=== PATIENT | male | born 1950 | race Caucasian/White ===

== ENCOUNTER 2016-10-05 09:05 | Inpatient (IN) | payer OTHER ==
--- NOTE | 2016-10-04 14:59 | PCM.ANEPRE ---
Anesthesia Pre-Op Review Reason for Review: CARDIAC ISSUES/STOP BANG 12/08 Anesthesia Recommendations: Proceed with Procedure Additional Comments 66 y/o male scheduled for Left foot surgery. Pt with h/o COPD/Emphysema, echo with EF 60-65%, Hgb A1c 8.5 and STOP BNAG 12/08. Ok to proceed. Will eval DOS. Chart Reviewed by: Luigi Dave MD October 04, 2016 14:59
[~2016-10-05] VITALS: Ht 188 cm; Wt 140.7 kg
[2016-10-05] VITALS (13 sets, daily range): BP systolic 130–174; BP diastolic 54–90; PULSE 54–79; RESP 11–18; O2SAT 89–97
[2016-10-05] MEDS: Lactated Ringer's 1,000 ML IV SCH ×3 (05:00→12:08)
[~2016-10-05 09:05] MED LIST: ALBU18HF INH; ALBU2.5V4 NEB; ALLO300T2 PO; AMLO5TAB2 PO; ASPI-973 PO; ATOR10TA66 PO; BUPR300T52 PO; CITA20TA11 PO; COLC0.6T55 PO; CeFAZolin Inj 3 GM in IV Premix IV ONE; FOLI100T PO; FURO40TA4 PO; HYDR-3940 PO; INSU100I SUBQ; INSU100I13 SUBQ; METO50TA3 PO; MORP10CA12 PO; OXYC-474 PO; POTA10TA12 PO; RANI150C4 PO; SILD100T PO; TIOT4MIS2 IH
[2016-10-05] MEDS ORDERED: fentaNYL-PF 50 mCg/mL 2 mL Inj IVPUSH PRN (10:20)
[2016-10-05 10:22] LABS: Mean Corpuscular Hemoglobin 25.4 pg (27.0-35.0); Mean Corpuscular Volume 83.5 fL (81-100)
[2016-10-05] MEDS ORDERED: Bupivacaine-MPF 0.5% W/EPI 30 mL Inj INFILTRATE ONE (11:40)
[2016-10-05] MEDS ORDERED: Lidocaine 2%-Epi 1:100,000 20 mL Inj INFILTRATE ONE (11:40)
[2016-10-05] MEDS ORDERED: Lactated Ringer's 500 ML IV PRN (11:59)
[2016-10-05] MEDS ORDERED: Lactated Ringer's 1,000 ML IV SCH (11:59)
--- NOTE | 2016-10-05 11:59 | PCM.HPANE ---
Patient Data Date of Service: October 05, 2016 Surgeon Admitting Provider: Attending Provider:Ayush Chopra DPM Primary Care Physician:Colleen Doyle MD Other Provider:Steph Diaz Anesthesia Reason for Visit Left Sharko Foot, Achilles Contracture Ht/WT & BMI Height (Feet): 6 Height (Inches): 2.00 Weight (Kilograms): 140.700 Body Mass Index 39.00 Allergies Coded Allergies: TAPE (Verified Adverse Reaction, Severe, RASH, ITCHING, 10/04/16) vancomycin (Verified Adverse Reaction, Severe, Toxicity requiring dialysis , 10/04/16) Past Anesthesia History Anesthesia History: Denies:: Abnormal Airway, Anesthesia Reactions, Difficult Intubation, Fam Anesthesia Reaction, Fam Malignant Hypertherm, Malignant Hyperthermia Diabetes History Hx Diabetes?: Yes Type of Diabetes: Type II Glycemic Control: Insulin Dependent Current Bedside Blood Glucose: 172 MRSA MRSA: Yes (Foot MRSA) Medications Blood Thinner: Aspirin Hypertension Medication: Yes (AMLODIPINE,HYDRALAZINE,LASIX) Home Meds Incl Beta Hussain: Yes Date Beta Hussain Taken: October 05, 2016 Time Beta Hussain Taken: 07 Active Scripts Hydralazine 50 Mg Jmsfsy564 Mg PO TID #60 TABLET Prov:Demetrio Tesfaye MD 12/29/15 Atorvastatin Calcium 10 Mg Jkqxav34 Mg PO HS #30 TABLET Prov:Demetrio Tesfaye MD 12/29/15 Amlodipine 5 Mg Tclghz97 Mg PO DAILY #30 TABLET Prov:Demetrio Tesfaye MD 12/29/15 Reported Medications Morphine Sulfate ER 10 Mg Llenosc32 Mg PO BID 10/04/16 Potassium Chloride ER 10 Meq Oofxfv32 Meq PO DAILY Ref 0 TAKE WITH FOOD 10/04/16 Tiotropium Bumpass (Spiriva Respimat)4 Gm Mist.inhal4 Gm IH HS 10/04/16 Folic Acid/Multivit-Minerals (Centrum Flavor Burst Adult Chw)100 Mcg Tab.toyk984 Mcg PO DAILY 10/04/16 Ranitidine 150 Mg Sglzwoy310 Mg PO DAILY Ref 0 10/04/16 Furosemide 40 Mg Qmobvh96 Mg PO DAILY 10/04/16 Insulin Glargine (Lantus U100 Solostar Insulin Pen)100 Unit/1 Ml Insuln.pen20 Unit SUBQ BID #1 PENINJ Ref 0 10/04/16 Albuterol Sulfate (Ventolin HFA Inhaler)200 Puff/18 Gm Inhaler1 Puff INH Q4 PRN For Wheezing #1 INHALER Ref 0 10/04/16 Metoprolol Tartrate 50 Mg Hshhxy56 Mg PO BID 30 Days Ref 0 10/04/16 Oxycodone (Roxicodone)5 Mg Ayeqwp65 Mg PO 6x day PRN For Pain Ref 0 11/25/15 Insulin Aspart (NovoLOG U-100 Pen)100 Unit/Ml Insuln.pen25 Units SUBQ 6X/DAY 10/13/15 Colchicine 0.6 Mg Tablet0.6 Mg PO PRN Gout 10/13/15 Citalopram 20 Mg Cunyjt02 Mg PO DAILY 10/13/15 Bupropion ER 300 Mg Tab.er.82f713 Mg PO DAILY 10/13/15 Aspirin 81 Mg Zbtlkt87 Mg PO DAILY Ref 0 10/13/15 Allopurinol 300 Mg Vdaqyy577 Mg PO DAILY PRN gout Ref 0 10/13/15 Albuterol Neb Soln 2.5 Mg/3 Ml Vial.neb3 Mg NEB Q4H 10/13/15 Discontinued Reported Medications Sildenafil Citrate (Viagra)100 Mg Ctyawu242 Mg PO UD PRN ED Ref 0 10/04/16 Multivitamin-Min/Iron/FA/Vit K (Multi-Day Plus Minerals Tablet)18 Mg Iron-400 Mcg-25 Mcg Tablet1 Tablet PO DAILY 01/02/16 Ergocalciferol (Vitamin D2) (Drisdol)50,000 Unit Onrgoqn07,000 Unit PO Q Saturday10/13/15 Discontinued Scripts Insulin Human Lispro (HumaLOG U100 Insulin Vial)100 Unit/Ml Unit Subq Wmhs #1 Unit Check blood sugars before meals and at bedtime. Use correction factor only before meals. Blood Sugar Lispro Correction: <151, 0 units; 151-175, 1 unit; 176-200, 2 units; 201-225, 3 units; 226-250, 4 units; 251-275, 5 units; 276-300, 6 units; 301-325, 7 units; 326-350, 8 units; 351-375, 9 units; 376-400, 10 units; >400, 12 units. Prov:Demetrio Tesfaye MD 12/29/15 Insulin Glargine (Lantus U100 Insulin Vial)100 Unit/Ml Vial30 Unit SUBQ BID #1 VIAL Prov:Demetrio Tesfaye MD 12/29/15 Labetalol 100 Mg Pgzwhf55 Mg PO Q8 #60 TABLET Prov:Demetrio Tesfaye MD 12/29/15 Iron Polysaccharides Complex (Poly-Iron)150 Mg Zzfpaog026 Mg PO BID #30 CAPSULE Prov:Demetrio Tesfaye MD 12/29/15 Folic Acid 1 Mg Tablet1 Mg PO DAILY #30 TABLET Prov:Demetrio Tesfaye MD 12/29/15 Famotidine (Pepcid)20 Mg Zrbrtf92 Mg PO DAILYAC #30 TABLET Prov:Demetrio Tesfaye MD 12/29/15 Sevelamer Carbonate (Renvela)800 Mg Tablet1,600 Mg PO TIDWM 30 Days Prov:Demetrio Tesfaye MD 12/29/15 History History of ENT Problems?: Yes HEENT History: Positive for:: Cataracts (B/L) Denies:: Abnormal Airway Difficult Intubation Dysphagia Hearing Problem Sinus Problem TMJ Denture Type: None Teeth Condition: Missing Teeth Hx of Heart Problems?: Yes Cardiovascular History: Positive for:: Abdominal Aortic Aneurism (AORTIC ARCH MILDLY ENLARGED) Cardiac Surgery (S/P HEART CATH 10/2015) Congestive Heart Failure Coronary Artery Disease ("MILD") Hypertension (HYPERLIPIDEMIA) Denies:: Atrial Fibrillation Chest Pain Edema Heart Murmur (ECHO 12/2015 EF 65-70%) Irregular Heartbeat Pacemaker Thrombophlebitis Valvular Heart Disease Hx of Respiratory Problem?: Yes Respiratory History: Positive for:: Asthma COPD Chest Surgery Pneumonia (HX OF) Denies:: Cough (RECENT COLD-CXR SHOWS NO ACUTE DISEASE) Dyspnea Emphysema Hemoptysis Tuberculosis Use of C-PAP Machine (sleep study recommended - not yet done) Hx Neurologic Problems?: Yes Neurological History: Positive for:: Dizziness Headaches Denies:: Alzheimer's Disease CVA Dementia Multiple Sclerosis Parkinson's Disease Seizures Other Neurological Pertinent: C/OF PERIPHERAL NEUROPATHY, INSOMNIA CHRONIC PAIN SYNDROME-FOLLOWED BY DR. JILLIAN DEY DO Hx of GI Problems?: Yes Hx of Problems?: Yes Genitourinary History: Denies:: HX of Hemodialysis (HX OF DIALYSIS FOR ARF R/ T VANCO TOXICITY 01/2016 (CURRENTLY CRI STAGE II)) Kidney Stones Urinary Tract Infection HX of Peritoneal Dialysis: No Other Pertinent History: ED Male Hx: Denies:: Prostate Problems Scrotal Mass Testicular Surgery Skin History: Positive for:: Pressure Ulcers (B/L FEET) Denies:: History Skin Disorders? Hx Musculoskeletal Problems?: Yes Musculoskeletal History: Positive for:: Back Injury (chronic pain) Musculoskeletal Trauma (Multiple falls W/ RT THUMB FX) Osteoarthritis Denies:: Joint Replacement Systemic Lupus Hx of Psycho/Social Problems?: Yes Psycho Social History: Positive for:: Anxiety (PTSD) Bipolar Disorder (II) Hx Depression Denies:: Suicide Attempt Hx Surgeries?: Yes (MULT TOE AMPS/RPRS,LT SHOULDER RPR,HEART CATH,B/L KNEE RPRS ) Hx Any Other Health Problems?: Yes Other History: Positive for:: Hospitalization Denies:: Cancer Endocrine Disease Thyroid Disease History Blood Transfusions: Denies:: Blood Transfusions Hx Diabetes: YesBedside Blood Glucose: 172 Hx Alcohol Use: No (HX ABUSE)Hx Substance Use: Yes Smoking Status: Current Every Day Smoker Have You Smoked inLast 12 mo: No Stop/Bang Treated for Sleep Apnea?: No Do You Have a CPAP Machine?: No S-Snoring: Do You Snore Loudly: Yes T-Tired: feel tired, fatigued: No O-Obsered: Observed not breath: Yes P-Blood Pressure: treated: Yes B- Body Mass Index > 35 kg/m2: Yes A- Age over 50: Yes N- Neck Large Circumference: Yes G- Gender Male: Yes GODWIN Total Score: 7 GODWIN Risk Assessment: High Risk, =/>3 Yes Risk Assessment Category Category 1A: Patient has history of documented sleep apnea, and HAS NOT received any narcotic, sedative or anesthesia administration during this stay. Category 1B: Patient has history of documented sleep apnea, and HAS received any narcotic , sedative or anesthesia administration during this stay Category 2: Patient has SUSPECTED Obstructive Sleep Apnea, and HAS received any narcotic , sedative or anesthesia administration during this stay. Category 3: Patient has SUSPECTED Obstructive Sleep Apnea and HAS NOT received narcotic, sedative or anesthesia administration during this stay. Category 4: Outpatient in Procedural Areas with known sleep apnea or who screen positive for High Risk via the STOP/BANG questionnaire. Additional Information Scheduled and canceled sleep study Exam Exam Vital Signs Vital Signs Date Time Temp Pulse Resp B/P Pulse Ox O2 Delivery O2 Flow Rate FiO2 10/05/16 09:34 36.2 54 16 146/54 89 Room Air 10/05/16 09:33 36.2 54 General Appearance: Alert, Oriented X3, Cooperative HEENT/AIRWAY: MP 2, Neck Movement (Thick), Mouth Opening (Wide) Lungs: Normal Air Movement, Coarse Heart: Regular Rate/Rhythm, Normal S1, Normal S2 Meds/Labs/Diagnostics Admission Meds Current Medications Lactated Ringer's (Lr) 1,000 ml @ 120 mls/hr Q8H20M IV Last administered on t 09:10; Start 10/05/16 at 05:00; Stop 10/05/16 at 13:19 Bedside Blood Glucose: 172 Diagnositcs Echo, cath reviewed. Mild coronary disease. CXR with no acute process, patient room air saturation 89%, improved to 96% with deep breathing. No home O2 or CPAP Plan Impression Patient chart reviewed, patient interviewed and anesthestic plan with risks, benefits, and alternatives discussed, and informed consent obtained. NPO per Anesth. Guidelines: Yes ASA Physical Status: ASA3 Severe Disease Anesthetic Plan: MAC Bene/Risks/Altern/Consents: Yes HP Complete Prior to Induction: Yes Other Discussed patient's pulmonary status with Dr. Chopra, feels that given patients severe neuropathy that he could complete operation under MAC and local Prabhjot Kothari MD October 05, 2016 10:11
[2016-10-05] MEDS ORDERED: Labetalol 5 mg/mL 4 mL Inj IV PRN (12:00)
[2016-10-05] MEDS ORDERED: Ondansetron 2 mg/mL 2 mL Inj IVPUSH PRN (12:00)
[2016-10-05] MEDS ORDERED: EPHEDrine Sulfate 50 mg/mL Inj IVPUSH PRN (12:00)
[2016-10-05] MEDS ORDERED: HYDROmorphone 1 mg/mL Inj IVPUSH PRN (12:00)
[2016-10-05] MEDS ORDERED: hydrALAZINE 20 mg/mL Inj IVPUSH PRN (12:00)
[2016-10-05] MEDS ORDERED: Dexamethasone 4 mg/mL Inj IVPUSH PRN (12:00)
[2016-10-05] MEDS ORDERED: Albuterol-Ipratropium 3 mL Inhalation Solution NEB PRN (12:00)
[2016-10-05] MEDS ORDERED: MetoCLOpramide 5 mg/mL 2 mL Inj IVPUSH PRN (12:00)
[2016-10-05] MEDS ORDERED: Atropine 0.4 mg/mL Inj IVPUSH PRN (12:00)
[2016-10-05] MEDS ORDERED: Phenylephrine 10,000 mCg/mL Inj IVPUSH PRN (12:00)
[2016-10-05] MEDS ORDERED: Lactated Ringer's 1,000 ML IV ONE (15:00)
--- NOTE | 2016-10-05 16:00 | PCM.ANEP1 ---
Post Anesthesia Phase 1 PACU Phase 1 Assessment Date of Service: October 05, 2016 Vital Signs PACU - HR 56, RR 14, O2 94% RA, BP 135/74, T 36.6 Vital Signs Date Time Temp Pulse Resp B/P Pulse Ox O2 Delivery O2 Flow Rate FiO2 10/05/16 10:14 55 18 96 Room Air 10/05/16 09:50 36.2 54 16 146/54 89 Room Air 10/05/16 09:34 36.2 54 16 146/54 89 Room Air 10/05/16 09:33 36.2 54 Anesthetic Administered: MAC Level of Alertness: Awake, talking NIXON's with Equal Strength: Yes Pain: No Nausea or Vomiting: No Cardiovascular Function and Hy: Yes Oxygen Delivery: Room Air Lungs: Normal Air Movement, Coarse Dermatome Level: Full Sensation Complications: No Follow up Care: No Patient Instructions Provided: Yes Prabhjot Kothari MD October 05, 2016 16:00
[2016-10-05] MEDS: fentaNYL-PF 50 mCg/mL 2 mL Inj IVPUSH PRN ×2 (16:15→16:32)
[2016-10-05] MEDS ORDERED: Propofol 10,000 mCg/mL 20 mL Inj ONE (17:33)
[2016-10-05] MEDS ORDERED: fentaNYL-PF 50 mCg/mL 2 mL Inj ONE (17:33)
[2016-10-05] MEDS ORDERED: Sodium Chloride LOK Flush 10 mL Syringe IVFLUSH PRN (17:50)
[2016-10-05] MEDS ORDERED: Morphine ER 15 mg (MS Contin) Tablet PO SCH (17:55)
[2016-10-05] MEDS ORDERED: Albuterol 2.5 mg/3 mL Inhalation Solution NEB PRN (18:00)
--- NOTE | 2016-10-05 18:06 | OP ---
[address] [address] OPERATIVE REPORT PATIENT: JR RAPP : 1950 MR#: [id number] ADMIT: 10/05/2016 JOB ID: [id number] DATE OF SURGERY: 10/05/2016 SURGEON: Ayush Chopra DPM PREOPERATIVE DIAGNOSIS(ES): 1. Diabetic ulceration, left foot. 2. Charcot arthropathy, left foot. 3. Contracture of left Achilles. POSTOPERATIVE DIAGNOSIS(ES): 1. Diabetic ulceration, left foot. 2. Charcot arthropathy, left foot. 3. Contracture of left Achilles. PLANNED PROCEDURE: 1. Open Z-plasty lengthening of left Achilles. 2. Fusion of tarsal metatarsal joint of the left lateral foot. 3. Debridement of ulceration through skin and subcutaneous tissue, left foot. ANESTHESIA: Local with IV sedation. HEMOSTASIS: None. ESTIMATED BLOOD LOSS: Less than 500 cc. PROCEDURE AND FINDINGS: The patient was brought to the operating room and placed on the table in the upright position for breathing ease and placed under IV sedation. The left foot was anesthetized with 20 cc of combination of lidocaine with epinephrine and bupivacaine. The left lower extremity was prepped and draped in normal sterile surgical manner. Attention was directed to the medial aspect of the left ankle where incision was placed over the medial aspect of the Achilles tendon. Incision was carried down to tendon using sharp and blunt dissection, carefully cauterizing and ligating any bleeders that were encountered. The Achilles tendon was then partitioned anterior and posterior, bluntly along a 12 cm section. I incised the tendon posterior in its proximal margin and anterior at its distal margin creating an open Z-plasty. At this point, I packed the wound with saline moistened gauze and directed attention to the lateral side of the foot where the procedure was continued. Incision was made over the dorsal aspect of the residual 5th metatarsal. Incision was carried down to bone and periosteum using sharp and blunt dissection, carefully cauterizing and ligating any bleeders that were encountered. I dissected soft tissue away from the 5th metatarsal so as to leave the proximal base for insertion of the peroneus brevis. However, I was able to remove all of the base of the 5th metatarsal placing this on the back table for preparation in later grafting. I then prepped the 4th metatarsal cuboid joint for fusion. This was hypertrophic joint with long-term deformity. I removed both aspects of the articular set and cleared with both the reciprocal planing and with the osteotome. This was copiously irrigated with normal saline fluid followed by placement of prepared graft. After removal of the 5th metatarsal head performed, the healthy portion of that bone into a bicortical wedge. This was introduced into the dorsal aspect of the fusion site and driven to impaction with a mallet and tamp set. I then acquired fusion plates with combination of locking and nonlocking titanium screws. This was applied in standard AO fashion. Details of the screws and plate to be found in the material record. The fusion was created so as to restore plantar curvature to the 4th met cuboid joint with stability in the sagittal plane. The fusion site was found to be good, well compressed and fixated on multiple planes with live fluoroscopy. All deficits were packed tightly with graft material harvested from the patient in the first part of the procedure. The periosteum and the fascial plane were restored using externally knotted Prolene suture followed by running interlocking 3-0 and 4-0 Prolene both as retention and also skin closure. I then directed attention to the medial incision of the Achilles, and with the foot in maximal dorsiflexion, opposed the two portions of the Achilles and fixated them together using 0-Vicryl in running Krackow technique. The peritenon was then closed with running 3-0 Vicryl followed by skin closure with 3-0 Prolene running interlocking. I then used a #10 scalpel and a #2 sharp dermal curette to excisionally debride the plantar ulceration through skin and subcutaneous tissue, causing moderate bleeding. This was resolved with pressure and focal cautery. The surgical wounds as well as the plantar wound were dressed with saline moistened gauze, dry gauze, Kerlix, and I also initiated a bulb drain 7-Khmer that will be monitored and changed when patient transfers to the floor. The patient did have near immediate CFT to all digits throughout the procedure as no tourniquet was applied. He was transferred from the operating room in stable condition, having tolerated procedure and anesthetic well. POSTOPERATIVE PLAN: The patient will be admitted to hospital for 3-7 days depending upon condition for stabilization and transfer to long term facility for further recovery. The patient understands he is to be strictly nonweightbearing upon the left lower extremity until such time that radiographs show adequate healing. He will be evaluated by our hospitalist team for help with management of his medical conditions during the course of his visit. My thanks to the surgical and anesthesia teams for their excellent assistance today. BOBO
[2016-10-05] MEDS ORDERED: Furosemide 10 mg/mL 4 mL Inj IVPUSH ONE (19:05)
--- NOTE | 2016-10-05 19:20 | PCM.HPMED ---
Subjective Date of Service October 05, 2016 Primary Provider: Admitting Physician: Ayush Chopra DPM Primary Care Physician: Colleen Doyle MD Attending Physician: Ayush Chopra DPM Chief Complaint: . From his left Achilles tendon contracture lengthening, fusion of left lateral foot History of Present Illness: 68-year-old obese white male with past medical history of diabetes, hypertension , COPD, gout, arthritis, abdominal aortic aneurysm, leg edema, congestive heart failure of unknown type is presenting after undergoing his surgery in the OR for left Achilles contracture lengthening and also fusion of left lateral foot . Dr. Stafford is his high school social science teacher who performed the operation. \ Patient is saying that he has been suffering from sinusitis or pneumonia he thinks he is on a medication that starts with C but cannot recall the name. He called his at home to see what medication as his pharmacy [facility] is closed. No one picked up the phone. He is currently on Ancef per surgery. He states that he had it for a week prior to surgery he also has chronic left shoulder pain that was present before the surgery. He states that because of his sinusitis his left side of face is tender is draining more from left side of the face and left ear hurts. He denies current fevers or chills. He had his meal and ate well. In the room he states that he is wheezing a lot. He felt better after he sat him up. He states that he went through her surgery is okay without complications. He feels that his left side of his face is numb but that is also sinus pain that he normally experiences. He states sometimes gout in his makes him feel this way too. Patient denies chest pain, nausea vomiting. He is giving history but at times dozing off. States he will need his pain meds tonight. States he is not on oxygen at night. He confirms to me that he discussed going to a long term for recovery after the surgery with his surgeon. He also bought electric wheelchair in preparation for the recovery. Prior to this he was walking without a walker at home. Patient has an insulin dosing per his home medication list. He says he takes 25 units of short-acting 6 times a day. He cannot confirm or deny this, his is not available on the phone. His pharmacy is closed. Patient is a patient of Dr. Doyle at [facility]. Review of Systems: Gen.: No weight gain patient has been having fevers and malaise Eyes: no visual disturbances or blurring vision different from his baseline HEENT: Endorsing sore throat and r left-sided facial pain and left sided ear pain Lymph: Submental lymphadenopathy on the right side Cardiac: No chest pain, endorsing orthopnea dyspnea and wheezing Pulmonary: wheezing or bringing up of sputum GI: No anorexia nausea vomiting Musculoskeletal: Says he has knee arthritis joint pains Neuro: States his left-sided face is numb due to sinusitis Allergies Coded Allergies: TAPE (Verified Adverse Reaction, Severe, RASH, ITCHING, 10/04/16) vancomycin (Verified Adverse Reaction, Severe, Toxicity requiring dialysis , 10/04/16) Home Medications Please see home medication list. The list is reviewed in the room with patient PMH Gout, CAD, DM 2, HTN, CHF of unknown type, AAA, arthritis, COPD, Charcot, leg edema, obesity Surgical History Cardiac cath in October 2015 bilateral knee meniscal repair, amputations of right and left last toes Family History Father of smoking, heart disease Mother is 96 and alive and well Social History Occupation: retired [employer] Hx Alcohol Use: No (HX ABUSE) Hx Substance Use: Yes Hx Tobacco Use: No Living Arrangement: with Family Exam Vital Signs Vital Sign - Last Date Time Temp Pulse Resp B/P Pulse Ox O2 Delivery O2 Flow Rate FiO2 10/05/16 18:15 36.8 68 18 144/90 92 Room Air Exam Physical examination Gen.: Laying in bed obese male, seems to be wheezing HEENT: Left-sided face looks slightly swollen, uterus are not erythematous except for q-tip trauma Heart: Regular rate and rhythm no S3-S4 murmurs Lungs diffusely wheezy and crackly Abdomen: Nontender nondistended, soft normal bowel sounds Extremities: Both extremities are wrapped in bandages only the last part of the toes are visible last dose is missing on the left side right side the whole foot is wrapped in dressings Neurological: Eyes are poorly reactive. Numbness over the right side of his face (states this is because of his sinusitis) CN II-12 are otherwise grossly unremarkable. Patient is not following commands too well due to drowsiness Psychiatric negative for anxiety Lab and Diagnostics Result Diagram: 10/05/16 1016 10/05/16 1016 Cardiac Echo Impressions Echo from 2015 shows ejection fraction of 65-70% Assessment & Plan This is a obese 68-year-old male with complicated history of diabetes, hypertension, COPD, gout, AAA, CHF of unknown type, CAD presenting here today status post surgical repair of left Achilles contracture secondary to shock he underwent a lengthening, fusion of left lateral foot. Assessment #1 dyspnea and orthopnea: -- Chest x-ray stat, proBNP, ABG -- Lasix 40 mg IV 1 time -- We will restart his pain meds after reviewing ABG Assessment #2 diabetes mellitus type II -- 18 units of Lantus twice a day, medium scale coverage ssi -- Before meals just checks -- His home regimen for her short-acting insulin makes no sense. His is not available on the phone, News in [place], his pharmacy is closed. Patient is a poor historian and also very sleepy. He is giving inconsistent answers to questions regarding his insulin -- We will manage him on the double coverage and monitor, which are to obtain correct dosing in the morning Assessment #3 hypertension, chronic --Continue medications hydralazine, amlodipine, Metoprolol Assessment #4 COPD, chronic --Continue Spiriva and albuterol home medications Assessment #5 gout --Continue home medications Assessment #6 Chronic congestive heart failure of unknown type --Continue home medication metoprolol, Lasix Assessment #7 Chronic pain -- We will hold pain medications until ABG returns debilitated respiration status -- If there is no concern for CO2 retention and he may have his medications Assessment #8 sinusitis -- Patient is currently on Ancef per his surgeon -- We will obtain his home medication from his tomorrow -- We will start him on doxycycline 100 mg IV twice a day -- We will get the details on her medication tomorrow a.m. Assessment #9 pneumonia, currently on unknown antibiotics at home -- We will start him on doxycycline 100 mg IV twice a day -- We will get the details on her medication tomorrow a.m. CODE STATUS: Full code ADM: Disposition in 3-7 days to [facility] level care for recovery Pain Evaluation: Adequate Pain Control VTE Prophylaxis: Sub-Q Heparin (Unfractionated) Resuscitation Status: CPR: Attempt Resuscitation ( is his alternate decision maker) Shena Frederick DO October 05, 2016 19:20
[2016-10-05] MEDS ORDERED: Glucose 40% Oral Gel 15 Gm Tube PO PRN (19:35)
--- NOTE | 2016-10-05 19:35 | ABG ---
DateTimeAnalyzed 19:27:00 -_ pH ____7.422 - 7.350 7.450 pCO2 ___42.7__ -mmHg 35.0 45.0 pO2 ___58.1__ -mmHg 69.0 116 HCO3- ___27.4__ -mmol/L 22.0 26.0 ABE ____3.1__ -mmol/L -2.0 2.0 tHb ____9.5__ -g/dL O2Hb ___89.2__ -% COHb ____1.2__ -% MetHb ____1.3__ -% sO2 ___91.5__ -% 25.0 FIO2 ___21.0__ -% Drawn By MK - Date/Time Notified____ 19:35:00 -_ Notified By MK - B 758 -mmHg tO2 ___12.0__ -Vol% Ford test _Positive -
[2016-10-05] MEDS: Albuterol 2.5 mg/3 mL Inhalation Solution NEB SCH ×2 (19:42→22:00)
--- NOTE | 2016-10-05 19:42 | NUR ---
Post op Pt arrive on [facility] at 1705, DONALD drain to left foot, jesus alberto wrap on both legs C/D/I. pt complaining of joint pain. Pt stated numbness in left face notified MD, Neuro check normal. See post op assessment, care continued.
--- NOTE | 2016-10-05 20:17 | DRSVH ---
PROCEDURE: X-RAY CHEST ONE VIEW ([id number]) INDICATIONS: dyspnea, rule out congestive heart failure TECHNIQUE: One view of the chest was acquired. COMPARISON: [facility], CR, XR CHEST 2VW, 10/02/2016, 15:21. FINDINGS: Surgical changes and devices: None. Lungs and pleura: No pleural effusions or pneumothorax. Mild patchy diffuse bilateral pulmonary opac ities. Mediastinum: Mediastinal contours appear normal. Heart size is normal. Bones and chest wall: No suspicious bony lesions. Overlying soft tissues appear unremarkable. IMPRESSION: Mild atypical pneumonia. Dictated by: Marino Savage M.D. on 10/05/2016 at 20:15 Approved by: Marino Savage M.D. on 10/05/2016 at 20:15
[2016-10-05] MEDS ORDERED: Insulin GLARgine 100 Unit/mL Syringe SUBQ SCH (20:30)
[2016-10-05] MEDS: Morphine ER 15 mg (MS Contin) Tablet PO SCH (20:44)
[2016-10-05] MEDS ORDERED: Sodium Chloride NAS 45 mL Spray NASAL PRN (20:50)
[2016-10-05] MEDS: Insulin GLARgine 100 Unit/mL Syringe SUBQ SCH (21:07)
[2016-10-05] MEDS: Insulin LISPRO 300 Unit/3 mL Inj SUBQ SCH (21:09)
[2016-10-05] MEDS: Fluticasone 0.05% 15 Spray/2 Gm 16 Gm Nasal Spray NASAL SCH (21:50)
[2016-10-05] MEDS ORDERED: Insulin LISPRO High-Dose Scale SUBQ SCH (22:00)
[2016-10-05] MEDS ORDERED: 0.9% Sodium Chloride 250 ML ONE (22:18)
[2016-10-05] MEDS: Doxycycline Inj 100 MG in Dextrose 5% Minibag Plus 100 ML IV SCH (22:28)
[2016-10-06] VITALS (9 sets, daily range): BP systolic 93–176; BP diastolic 72–89; PULSE 60–87; RESP 16–20; O2SAT 94–98
[2016-10-06] MEDS: CeFAZolin Inj 3 GM in IV Premix 1 EACH IV SCH ×2 (00:11→12:11)
[2016-10-06] MEDS: Heparin 5,000 Unit/mL Inj SUBQ SCH ×3 (00:11→16:33)
[2016-10-06 00:39] LABS: APPEARANCE,URINE CLEAR (CLEAR,HAZY); COLOR,URINE STRAW (YELLOW); OCCULT BLOOD,URINE NEGATIVE (NEGATIVE); PH,URINE 5.5 (5.0-8.0); UROBILINOGEN,URINE NORMAL (NORMAL)
[2016-10-06] MEDS: Albuterol 2.5 mg/3 mL Inhalation Solution NEB SCH ×6 (02:00→22:00)
--- NOTE | 2016-10-06 02:49 | NUR ---
Respiratory c/o slight wheeze and SOB. RA sats 93-94%. HS Lasix 40mg IV given as per Dr. Frederick order. RT in for treatment and CXR done. Diuresing post lasix, sats 95% states SOB resolving. Continues with nasal congestion r/t resent sinusitis. IV SL'd, taking PO well.
[2016-10-06] MEDS: Morphine ER 15 mg (MS Contin) Tablet PO SCH ×2 (08:17→20:20)
[2016-10-06 08:24] LABS: Mean Corpuscular Hemoglobin 25.8 pg (27.0-35.0); Mean Corpuscular Volume 82.8 fL (81-100)
[2016-10-06] MEDS: Doxycycline Inj 100 MG in Dextrose 5% Minibag Plus 100 ML IV SCH ×2 (08:51→22:20)
[2016-10-06] MEDS: Insulin GLARgine 100 Unit/mL Syringe SUBQ SCH ×2 (09:52→22:29)
[2016-10-06] MEDS: Insulin LISPRO 300 Unit/3 mL Inj SUBQ SCH ×4 (09:52→22:28)
[2016-10-06] MEDS: Fluticasone 0.05% 15 Spray/2 Gm 16 Gm Nasal Spray NASAL SCH ×2 (09:53→20:26)
[2016-10-06] MEDS: buPROPion XL 300 mg ER24 Tablet PO SCH (09:53)
[2016-10-06] MEDS ORDERED: Glucose 40% Oral Gel 15 Gm Tube PO PRN (10:15)
--- NOTE | 2016-10-06 16:18 | NUR ---
Social Work: Initial Assessment - ATTEMPTED SW attempted to conduct initial assessment. Pt was with . SW will follow-up tomorrow. ARLENE Judge
--- NOTE | 2016-10-06 16:44 | NUR ---
Pain Pt has reported post-op pain in his left foot at 7/10. Consistently requests 15 mg oxycodone Q 4 hours. Stated he feels the dosage should be increased or frequency should be 3 hrs instead of 4. Pt is cooperative with care and pleasant; visiting with his at the bedside. Pt appears comfortable. Left foot elevated on 2 pillows to assist with pain relief. Care continues.
[2016-10-06] MEDS ORDERED: Tiotropium 18mcg/Cap 5 Capsule Inhaler Kit INHALATION SCH (18:03)
--- NOTE | 2016-10-06 19:00 | PCM.PNMED ---
Subjective Date of Service October 06, 2016 Subjective Patient does not know his antibiotic or insulin dosing. His does not know either. Patient has been wheezing. pt states he takes anywhere between 10-100 units quick acting coverage at home depending on what he is. He is feeling better this a.m. than he did last night. No other concerns Exam Vital Signs Vital Sign - Last Date Time Temp Pulse Resp B/P Pulse Ox O2 Delivery O2 Flow Rate FiO2 10/06/16 17:05 36.9 68 16 176/74 96 Room Air Intake and Output 10/05/16 10/05/16 10/06/16 Cumulative From/Thru 15:00 23:00 07:00 10/04/16 09:38 - 10/06/16 06:11 Intake Total 1750 ml 300 ml 641 ml 2691 ml Output Total 600 ml 1350 ml 1950 ml Balance 1150 ml 300 ml -709 ml 741 ml Intake Oral 474 ml 474 ml IV Total 1750 ml 300 ml 167 ml 2217 ml Output Urine Total 1350 ml 1350 ml Estimated Blood Loss 600 ml 600 ml # Bowel Movements 0 0 Exam General: NAD, laying in bed, obese HEENT: NCAT, poor dentition Eyes: [place] conjunctivae. No ptosis, PERRL Neck: No masses, trachea midline, no thyromegaly Lungs: Lungs are still diffusely wheezy though somewhat improved from last night CV: RRR, no murmurs/rubs/gallops, normal PMI GI: Soft, non-tender with no hepatosplenomegaly. Normal bowel sounds MSK: no digital cyanosis Skin: Warm and dry. Psych: A&O X3, with appropriate affect IVs and Medications IV Fluids None Medications Reviewed: Medications were reviewed in detail Lab and Diagnostics Result Diagram: 10/06/16 0810 10/06/16 0810 Cardiac Echo Impressions Echo from 2015 shows ejection fraction of 65-70% Assessment & Plan This is a obese 68-year-old male with complicated history of diabetes, hypertension, COPD, gout, AAA, CHF of unknown type, CAD presenting here today status post surgical repair of left Achilles contracture secondary to charcot's he underwent a lengthening, fusion of left lateral foot. status post surgical repair of left Achilles contracture secondary to charcot's he underwent a lengthening, fusion of left lateral foot. -- Home medications for pain -- Added morphine IV 1-2 mg every 4 hours when necessary -- Podiatry is following Assessment #1 dyspnea and orthopnea: Due to COPD exacerbation, community acquired pneumonia, obesity -- Chest x-ray stat, proBNP, ABG -- Lasix 40 mg IV 1 time -- We will restart his pain meds after reviewing ABG: Patient's home medications were restarted 5/5 p.m. Assessment #2 Acute on chronic COPD exacerbation: -- Duo nebs every 6 hours -- Albuterol every 4 hours when necessary -- Solu-Medrol 40 mg every 12 Assessment #3 Community-acquired pneumonia: Patient states he was diagnosed and had 4 days of antibiotics prior to his surgery. POA -- As evidenced by the chest x-ray 10/05 night -- Ceftriaxone is admitted to doxycycline IV as he completed cefazolin from surgery -- COPD treatment as above -- Urine strep, legionella tests -- Sputum cultures -- Respiratory viral panel Assessment #4 diabetes mellitus type II -- 18 units of Lantus twice a day, medium scale coverage ssi -- Before meals just checks -- His home regimen for her short-acting insulin makes no sense. His is not available on the phone, [facility], his pharmacy is closed. Patient is a poor historian and also very sleepy. He is giving inconsistent answers to questions regarding his insulin -- We will manage him on the double coverage and monitor, which are to obtain correct dosing in the morning: His does not know his medication doses, patient is very noncompliant taking anywhere between 10-100 units a quick acting insulin. -- Added 3 units with each meal, plus high scale coverage -- Plan to just mealtime coverage based on his total need in the last 24 hours Assessment # 5 hypertension, chronic --Continue medications hydralazine, amlodipine, Metoprolol Assessment # 6 COPD, chronic --Continue Spiriva and albuterol home medications: Discontinue Spiriva on 10/06 and replaced it with duo nebs for better control of his wheezing Assessment # 7 gout --Continue home medications Assessment # 8 Chronic congestive heart failure of unknown type --Continue home medication metoprolol, Lasix Assessment # 9 Chronic pain -- We will hold pain medications until ABG returns debilitated respiration status -- If there is no concern for CO2 retention and he may have his medications -- Added morphine 1-2 mg every 4 hours when necessary for postoperative pain Assessment # 10 sinusitis -- Patient is currently on Ancef per his surgeon -- We will obtain his home medication from his tomorrow -- We will start him on doxycycline 100 mg IV twice a day, ceftriaxone was added for pneumonia CODE STATUS: Full code ADM: Disposition in 3-7 days to SNF level care for recovery Pain Evaluation: Pain not Controlled VTE Prophylaxis: Sub-Q Heparin (Unfractionated) Resuscitation Status: CPR: Attempt Resuscitation ( is his alternate decision maker) Time spent 25 minutes Shena Frederick DO October 06, 2016 19:00
[2016-10-06] MEDS: MethylprednisoLONE Sodium Succinate 40 mg/mL Inj IVPUSH SCH (20:20)
[2016-10-06] MEDS: Albuterol-Ipratropium 3 mL Inhalation Solution NEB SCH (20:57)
[2016-10-06] MEDS: cefTRIAXone Inj 1,000 MG in Dextrose 5% Minibag Plus 50 ML IV SCH (21:07)
[2016-10-07] VITALS (7 sets, daily range): BP systolic 123–152; BP diastolic 65–72; PULSE 63–77; RESP 18–20; O2SAT 93–98
[2016-10-07] MEDS: Heparin 5,000 Unit/mL Inj SUBQ SCH ×3 (00:08→17:00)
--- NOTE | 2016-10-07 00:12 | PROG NOTE ---
[address] [address] PROGRESS NOTE PATIENT: JR RAPP : 1950 MR#: [id number] ADMIT: 10/05/2016 JOB ID: [id number] DATE: 10/06/2016 SUBJECTIVE: The patient is seen at bedside resting comfortably in the presence of his . He states that he has been doing well today. He states his pain is well controlled. He does describe some aching in his left leg. He denies any fevers, nausea, vomiting, or other signs of infection. He was experiencing shortness of breath earlier this morning before taking his diuretics. After a couple of hours, this resolved. He has some questions about surgical intervention which we discussed during the course of our visit today. He reaffirms his commitment to nonweightbearing status and doing whatever it takes to heal his foot. OBJECTIVE: Vitals: BP is 169/89, pulse is 68, respirations 18, temperature 37.1 p.o. Pulse oximetry shows 98% on room air. PERTINENT LABORATORY DATA: Includes white count of 11.8, H and H 9.3 and 29.9, down from 10.3 and 33.9 yesterday. Chemistry all within normal limits with the exception of a random glucose of 189. Dressings are clean, dry and intact to both lower extremities. He has a DONALD drain to the left side which is so far expressed a total of 200 cc of serosanguineous fluid. Estimated blood loss in surgery was between 400-600 cc total. Hemostasis of the dressings appears normal. He has immediate CFT to the remaining digits. The foot position is neutral in all planes. ASSESSMENT: 1. Good progress status post reconstruction of left Charcot foot with lengthening of Achilles tendon. 2. Charcot arthropathy to both feet with associated diabetic wounds. 3. Diabetes with neurologic manifestations and recurrent chronic foot wounds. PLAN: After seeing the patient today, I did elect to leave the drain in one more day. As it continues to produce serosanguineous fluid, I would like to see this run clear sometime in the next 24 hours. I intend to pull the drain tomorrow and re-dress the drain site but hopefully keep the surgical dressings intact. I also performed some debridement on the right foot as we kept this covered to reduce cross contamination. Neither side shows sign of acute or chronic infection at this point. We will continue him on prophylactic antibiotics given the nature of the surgery and implantation of orthopedic hardware. The patient's questions are answered. Discussed with him in detail the reconstruction and fusion of the left lateral column with titanium plate and screw system. Also discussed with the patient the mechanical and biological implications of the Achilles lengthening procedure. The patient expresses understanding of the importance of staying off the foot completely to allow this to heal and resolved position. He also expresses his commitment to [facility] facility for continued rehab. He does relate to me some tenderness and difficulty with range of motion of his right shoulder. This was a recent injury experienced during a fall at home prior to last week. The patient states it is feeling somewhat better, but at some point he may benefit from further evaluation workup and treatment. This could be accomplished in the outpatient setting. The patient continues to benefit from a team approach to his medical and surgical care here at [facility]. I look forward to following him tomorrow morning.
[2016-10-07] MEDS: Albuterol 2.5 mg/3 mL Inhalation Solution NEB SCH ×5 (02:00→14:28)
[2016-10-07] MEDS: Albuterol-Ipratropium 3 mL Inhalation Solution NEB SCH ×4 (02:29→20:10)
--- NOTE | 2016-10-07 04:31 | NUR ---
Pain pt has rated his pain a 6/10 this shift. he has been given his scheduled MS contin as well as 15mg of oxycodone Q4hrs. IV morphine has been added for breakthrough pain and pt took 2mg of IV morphine once this shift. he has been up in his chair all night with his feet propped up on the bed. he says he sleeps in a recliner at home and feels the most comfortable this way. care continues.
[2016-10-07 05:17] LABS: Mean Corpuscular Hemoglobin 25.4 pg (27.0-35.0); Mean Corpuscular Volume 81.8 fL (81-100)
[2016-10-07] MEDS: Insulin GLARgine 100 Unit/mL Syringe SUBQ SCH (07:54)
[2016-10-07] MEDS: Insulin LISPRO 300 Unit/3 mL Inj SUBQ SCH ×4 (07:55→22:29)
[2016-10-07] MEDS: MethylprednisoLONE Sodium Succinate 40 mg/mL Inj IVPUSH SCH ×2 (09:17→21:57)
[2016-10-07] MEDS: Doxycycline Inj 100 MG in Dextrose 5% Minibag Plus 100 ML IV SCH ×2 (09:22→21:57)
[2016-10-07] MEDS: Fluticasone 0.05% 15 Spray/2 Gm 16 Gm Nasal Spray NASAL SCH ×2 (09:24→22:22)
[2016-10-07] MEDS: Morphine ER 15 mg (MS Contin) Tablet PO SCH ×2 (09:28→22:23)
--- NOTE | 2016-10-07 11:11 | NUR ---
Social Work: Initial Assessment D: EMR reviewed. Pt is a 66 y/o male admitted for left sharko foot, achilles contracture. AMADOR met with pt at [facility] to conduct initial assessment. Pt's insurance is Medicare and [facility] Meetyl. Pt's PCP is Colleen Doyle MD. Pt has no LTC insurance. Pt has [facility] ([facility] Pt is independent of ADLs. Pt has history with [facility] and [facility]. Pt would be willing to return to [facility] or continue [facility]. Pt uses an electric scooter and no other DME. Pt lives with at home in [place] in a single-level home with a ramp for entry. Sarahy Gallagher is main contact ([phone]). Pt does not drive. Pt will discharge via POV with if medically stable. SW met with pt to discuss MD's recommendations for SNF after discharge. Pt is willing to go to [facility] and willing to continue [facility] after leaving [facility]. AMADOR confirmed with pt that SW will make referral to [facility] and follow-up with pt regarding discharge plan. A: Pt who would benefit from a SNF. P: Pt willing and agreeable to go to SNF. Pt chose [facility]. SW will fax face sheet and PASSR and give access to [facility] for referral. ARLENE Judge Addendum: 10/07/16 at 1121 by HUDSON JIMENEZ SS Amended: Links added. Addendum: 10/07/16 at 1135 by HUDSON JIMENEZ SS PASSR and face sheet faxed to [facility]. Diaz give.
--- NOTE | 2016-10-07 11:32 | NUR ---
PASSR and Face sheet faxed to [facility] [employer]. Access given. ARLENE Judge
[2016-10-07] MEDS: buPROPion XL 300 mg ER24 Tablet PO SCH (12:28)
--- NOTE | 2016-10-07 12:44 | NUR ---
Blood glucose Well above 300 today. Asymptomatic. All insulin given as ordered. MD informed; no additional orders at this time. Continue to monitor.
--- NOTE | 2016-10-07 16:21 | NUR ---
[facility] can accept with Dr. Merrill to follow. Marylou Todd MSW
--- NOTE | 2016-10-07 16:55 | CONS ---
[address] [address] CONSULTATION REPORT PATIENT: JR RAPP : 1950 MR#: [id number] ADMIT: 10/05/2016 JOB ID: [id number] DATE OF SERVICE: 10/07/2016 SUBJECTIVE: The patient is seen at bedside resting comfortably. His is present during the visit. He denies any fevers, nausea, vomiting, or other constitutional signs of infection. States his pain is better controlled today and he was able to sleep last night. He also describes his appetite is returning to normal. There were some changes in the last day with added antibiotic possibly covering a sinus or upper respiratory issue. The patient states he is feeling well. OBJECTIVE: Vitals: BP is 151/72, pulse 70, respirations 18, temperature 36.8 p.o. Pulse oximetry shows 98% on 2 L nasal cannula, although this is not present during our visit. PERTINENT LABORATORY DATA: Includes elevation in his white count, 13.5. H and H slightly improved, 9.5 and 30.6. Chemistry remained stable with exception of elevated random glucose, 360. Dressings are CDI to both lower extremity with expected postoperative strike through. During course of visit, I removed some of the anterior dressings on the left ankle and was able to access the drain site and remove the drain. Drain had just 10 cc of serosanguineous fluid present. Overall, drain appears to be complete. I was also able inspect the lateral incision. Found to be intact and coapting well. There is some dry blood at the site but no sign of exudate from the incision itself. The Achilles incision was left undisrupted. The patient has immediate CFT to the toes. Edema is minimal. It does appear that he has been effective at staying off the limb. On the right side. I did remove dressings. Found his chronic ulceration to be reduced in size, by about 18% over last measurements. This is now just 2.4 x 1.8 cm and is flush with the surface with a good granular base. There is some biofilm present, removed during the course of visit, and some superficial debridement. ASSESSMENT: 1. Good progress status post reconstruction of the left Charcot foot and lengthening of the Achilles tendon. 2. Charcot arthropathy, secondary to diabetes of both limbs. 3. Chronic diabetic ulcerations. PLAN: After evaluating the patient today, I did remove the drain on the left side, replaced and fortified his dressings. On the right side, I did selectively debride the wound, removing nonviable tissue and causing only slight superficial bleeding. Dressings were replaced in the form of normal saline and Betadine moistened gauze, Kerlix rolls, and Durga bandages from MTPJ to tibial tuberosity. The patient tolerates these bedside procedures well. I anticipate continued management of the presumed URI. He seems to be doing well otherwise systemically. I was not surprised to see elevated white count due to the nature and extensive nature of the surgery. It would be difficult to separate this from other etiology, but he is being treated effectively for all possibilities. The patient will stay in hospital until medically stable for transfer to [facility]. He reiterates his commitment to staying off the foot and allowing this to heal with an expected course of 6-8 weeks before weightbearing upon the left leg. Towards the end, we will get serial radiographs to make sure that bone is stable for ambulation. Patient has his and his 's questions answered. I will follow him midday tomorrow, Saturday. I very much appreciate the expertise and assistance of our hospitalist team in caring for this nice gentleman.
[2016-10-07] MEDS ORDERED: Insulin LISPRO 300 Unit/3 mL Inj SUBQ ONE (18:10)
--- NOTE | 2016-10-07 18:45 | NUR ---
Blood glucose Continues to increase. Last reading 455. NS started and additional insulin admin as ordered.
[2016-10-07] MEDS: cefTRIAXone Inj 1,000 MG in Dextrose 5% Minibag Plus 50 ML IV SCH (19:46)
[2016-10-07] MEDS: 0.9% Sodium Chloride 1,000 ML IV SCH (19:47)
[2016-10-07] MEDS ORDERED: 0.9% Sodium Chloride 1,000 ML IV ONE (20:20)
[2016-10-07] MEDS ORDERED: Insulin GLARgine 100 Unit/mL Syringe SUBQ SCH (21:00)
--- NOTE | 2016-10-07 23:06 | PCM.PNMED ---
Subjective Date of Service October 07, 2016 Subjective Patient is not examined. He appears much better, his wheezing has resolved. 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 Patient's insulin has been a challenge, as patient started eating more he says he was starving and he had 2 steaks for dinner. He has no other concerns Exam Vital Signs Vital Sign - Last Date Time Temp Pulse Resp B/P Pulse Ox O2 Delivery O2 Flow Rate FiO2 10/07/16 06:34 36.2 63 20 123/65 93 Room Air Intake and Output 10/06/16 10/06/16 10/07/16 Cumulative From/Thru 15:00 23:00 07:00 10/04/16 09:38 - 10/07/16 06:34 Intake Total 989 ml 850 ml 4530 ml Output Total 960 ml 1420 ml 4330 ml Balance 29 ml -570 ml 200 ml Intake Oral 773 ml 850 ml 2097 ml IV Total 216 ml 2433 ml Output Urine Total 900 ml 1400 ml 3650 ml Drainage Total 60 ml 20 ml 80 ml Estimated Blood Loss 600 ml # Bowel Movements 0 0 Exam Physical examination Gen.: Significant In chair today with his legs elevated, it appears more relaxed HEENT: NCAT Heart: Regular rate and rhythm no S3-S4 murmurs Lungs lung sounds are much improved, minimal wheezing Abdomen: Nontender nondistended, soft normal bowel sounds Extremities: Both extremities are wrapped in bandages only the last part of the toes are visible last dose is missing on the left side right side the whole foot is wrapped in dressings, it appears that the DONALD drain is removed Neurological: Eyes are poorly reactive. Neuro: No focal deficits Psychiatric negative for anxiety IVs and Medications Medications Reviewed: Medications were reviewed in detail Lab and Diagnostics Result Diagram: 10/07/16 0500 10/07/16 0500 Cardiac Echo Impressions Echo from 2015 shows ejection fraction of 65-70% Assessment & Plan This is a obese 68-year-old male with complicated history of diabetes, hypertension, COPD, gout, AAA, CHF of unknown type, CAD presenting here today status post surgical repair of left Achilles contracture secondary to charcot's he underwent a lengthening, fusion of left lateral foot. status post surgical repair of left Achilles contracture secondary to charcot's he underwent a lengthening, fusion of left lateral foot. -- Home medications for pain -- Added morphine IV 1-2 mg every 4 hours when necessary -- Podiatry is following: "After seeing the patient today, I did elect to leave the drain in one more day. As it continues to produce serosanguineous fluid, I would like to see this run clear sometime in the next 24 hours. I intend to pull the drain tomorrow and re-dress the drain site but hopefully keep the surgical dressings intact. I also performed some debridement on the right foot as we kept this covered to reduce cross contamination. Neither side shows sign of acute or chronic infection at this point. We will continue him on prophylactic antibiotics given the nature of the surgery and implantation of orthopedic hardware" -- It appears that podiatry is planning [facility]. Their original H&P states 3-7 days from the date of admission. Patient will be going to need [facility] Assessment #1 dyspnea and orthopnea: Due to COPD exacerbation, community acquired pneumonia, obesity -- Chest x-ray stat, proBNP, ABG -- Lasix 40 mg IV 1 time -- We will restart his pain meds after reviewing ABG: Patient's home medications were restarted 5/5 p.m. Assessment #2 Acute on chronic COPD exacerbation: -- Duo nebs every 6 hours -- Albuterol every 4 hours when necessary -- Solu-Medrol 40 mg every 12hr: Patient has a much improved because of steroids Assessment #3 Community-acquired pneumonia: Patient states he was diagnosed and had 4 days of antibiotics prior to his surgery. POA -- As evidenced by the chest x-ray 5 night -- Ceftriaxone is admitted to doxycycline IV as he completed cefazolin from surgery -- COPD treatment as above -- Urine strep, legionella tests: Negative -- Sputum cultures: This does not appear to have been sent -- Respiratory viral panel: Negative Assessment #4 diabetes mellitus type II -- 18 units of Lantus twice a day, medium scale coverage ssi -- Before meals just checks -- His home regimen for her short-acting insulin makes no sense. His is not available on the phone, [facility], his pharmacy is closed. Patient is a poor historian and also very sleepy. He is giving inconsistent answers to questions regarding his insulin -- We will manage him on the double coverage and monitor, which are to obtain correct dosing in the morning: His does not know his medication doses, patient is very noncompliant taking anywhere between 10-100 units a quick acting insulin. -- Added 3 units with each meal, plus high scale coverage -- Plan to just mealtime coverage based on his total need in the last 24 hours -- A1c is ordered 7.7 Assessment # 5 hypertension, chronic --Continue medications hydralazine, amlodipine, Metoprolol Assessment # 6 COPD, chronic --Continue Spiriva and albuterol home medications: Discontinue Spiriva on 10/06 and replaced it with duo nebs for better control of his wheezing Assessment # 7 gout --Continue home medications Assessment # 8 Chronic congestive heart failure of unknown type --Continue home medication metoprolol, Lasix Assessment # 9 Chronic pain -- We will hold pain medications until ABG returns debilitated respiration status -- If there is no concern for CO2 retention and he may have his medications -- Added morphine 1-2 mg every 4 hours when necessary for postoperative pain Assessment # 10 sinusitis -- Patient is currently on Ancef per his surgeon -- We will obtain his home medication from his tomorrow -- We will start him on doxycycline 100 mg IV twice a day, ceftriaxone was added for pneumonia Assessment #11 right shoulder pain -- Consider Ordering x-ray if no resolution -- Consider Physical therapy consult Assessment #12 hyperuricemia 10/07 -- Patient was on a 10 units 3 times a day with meals +20 twice a day Lantus plus high sliding scale -- Due to patient eating well today, corticosteroids for COPD his blood glucose has been a problem -- Patient was given 20 units of extra NovoLog on 10/07 PM, as his blood glucose was around 400 late in the evening, he was made nothing by mouth. IV Fluids were started and 40 units of at bedtime Lantus (in stead of 20) + high level sliding scale was left on board. -- Patient may restart diet tomorrow a.m., we will need to check his total dose per 24 hours prior to adjusting his long-acting insulin on 10/08. -- As it stands he is on 40 units daily at bedtime Lantus, 10 units NovoLog 3 times a day with meals+ high dose sliding scale. Consider splitting his total insulin the last 24 hours 50% 50% and giving half of it as long-acting and the rest is mealtime insulins. CODE STATUS: Full code ADM: Disposition : podiatry plans to discharge him to SNF level care by mid next week. He can complete the course of doxycycline by mouth. May stop Solu- Medrol after his COPD exacerbation is resolved. May give him prednisone 20 twice a day for dischargex 5days. Pain Evaluation: Adequate Pain Control VTE Prophylaxis: Sub-Q Heparin (Unfractionated) Resuscitation Status: CPR: Attempt Resuscitation ( is his alternate decision maker) Time spent 2 5 minutes Shena Frederick DO October 07, 2016 07:32
[2016-10-08] VITALS (8 sets, daily range): BP systolic 145–162; BP diastolic 74–89; PULSE 63–75; RESP 18–19; O2SAT 93–98
[2016-10-08] MEDS: 0.9% Sodium Chloride 1,000 ML IV SCH (00:19)
[2016-10-08] MEDS: Heparin 5,000 Unit/mL Inj SUBQ SCH ×3 (00:49→16:47)
[2016-10-08] MEDS: Albuterol-Ipratropium 3 mL Inhalation Solution NEB SCH ×4 (02:40→19:31)
[2016-10-08 05:21] LABS: Mean Corpuscular Hemoglobin 25.4 pg (27.0-35.0); Mean Corpuscular Volume 82.7 fL (81-100)
--- NOTE | 2016-10-08 06:06 | NUR ---
blood glucose pt was placed NPO last night per doctors orders to get better control of his blood glucose levels. his blood glucose was 399 at 2000 and was given his 40 units of lantus. at 2200 he was 436 and was given 10 units of lispro and MD was notified, no additional insulin ordered at that time. pt BG steadily decreased for the 6 hours after receiving his night time insulin with the lowest BG being 268. after that he has stayed steady at around 290. MD notified and no new orders at this time. will continue to monitor.
[2016-10-08 07:25] LABS: BASOPHILS % (AUTO) 0.1 % (0-3); EOSINOPHILS % (AUTO) 0 % (0-5); MONOCYTES % (AUTO) 3.3 % (4-12); NEUTROPHILS % (AUTO) 90.9 % (40-74)
[2016-10-08] MEDS ORDERED: Furosemide 10 mg/mL 2 mL Inj IVPUSH ONE (07:35)
[2016-10-08] MEDS: MethylprednisoLONE Sodium Succinate 40 mg/mL Inj IVPUSH SCH (08:15)
[2016-10-08] MEDS: Insulin LISPRO 300 Unit/3 mL Inj SUBQ SCH ×4 (08:19→21:48)
--- NOTE | 2016-10-08 09:08 | DRSVH ---
PROCEDURE: X-RAY CHEST ONE VIEW, PORTABLE ([id number]) INDICATIONS: pneumonia TECHNIQUE: One view of the chest was acquired. COMPARISON: [facility], CR, XR CHEST 1VW, 10/05/2016, 19:26. FINDINGS: Surgical changes and devices: None. Lungs and pleura: No pleural effusions or pneumothorax. Chronic scar/atelectasis as before. Slight i mprovement in diffuse patchy ill-defined groundglass opacities. Mediastinum: Mediastinal contours appear normal. Heart size is normal. Bones and chest wall: No suspicious bony lesions. Overlying soft tissues appear unremarkable. IMPRESSION: Interval improvement in diffuse ill-defined and groundglass opacities suggestive of impro ving pulmonary edema since 10/05/16, however recommend clinical correlation (atypical pneumonia in the differential). Dictated by: Joseph Petty M.D. on 10/08/2016 at 9:04 Approved by: Joseph Petty M.D. on 10/08/2016 at 9:07
[2016-10-08] MEDS: Doxycycline Inj 100 MG in Dextrose 5% Minibag Plus 100 ML IV SCH ×2 (09:52→21:25)
[2016-10-08] MEDS: Fluticasone 0.05% 15 Spray/2 Gm 16 Gm Nasal Spray NASAL SCH ×2 (09:52→21:26)
[2016-10-08] MEDS: Morphine ER 15 mg (MS Contin) Tablet PO SCH ×2 (09:54→21:28)
[2016-10-08] MEDS: buPROPion XL 300 mg ER24 Tablet PO SCH (09:55)
--- NOTE | 2016-10-08 12:02 | PCM.PNMED ---
Subjective Date of Service October 08, 2016 Subjective Continues to have dyspnea. Afebrile. Blood glucose continues to be uncontrolled. Exam Vital Signs Vital Sign - Last Date Time Temp Pulse Resp B/P Pulse Ox O2 Delivery O2 Flow Rate FiO2 10/08/16 09:44 36.8 73 18 145/84 93 Room Air 10/07/16 13:48 2.00 Intake and Output 10/07/16 10/07/16 10/08/16 Cumulative From/Thru 15:00 23:00 07:00 10/04/16 09:38 - 10/08/16 06:29 Intake Total 966 ml 236 ml 5732 ml Output Total 925 ml 550 ml 5805 ml Balance 41 ml -314 ml -73 ml Intake Oral 772 ml 236 ml 3105 ml IV Total 194 ml 2627 ml Output Urine Total 925 ml 550 ml 5125 ml Drainage Total 0 ml 80 ml Estimated Blood Loss 600 ml # Bowel Movements 0 0 Exam Gen.: Comfortable HEENT: NCAT Heart: Regular rate and rhythm no S3-S4 murmurs Lungs lung sounds are much improved, minimal wheezing Abdomen: Nontender nondistended, soft normal bowel sounds Extremities: Both extremities are wrapped in bandages only the last part of the toes are visible last dose is missing on the left side right side the whole foot is wrapped in dressings, it appears that the DONALD drain is removed Neuro: No focal deficits Psychiatric negative for anxiety IVs and Medications Medications Reviewed: Medications were reviewed in detail Lab and Diagnostics Result Diagram: 10/08/1644410/08/16444 X-Rays, CTs and MRIs PROCEDURE: X-RAY CHEST ONE VIEW, PORTABLE ([id number]) INDICATIONS: pneumonia IMPRESSION: Interval improvement in diffuse ill-defined and groundglass opacities suggestive of improving pulmonary edema since 10/05/16, however recommend clinical correlation (atypical pneumonia in the differential). Dictated by: Joseph Petty M.D. on 10/08/2016 at 9:04 Cardiac Echo Impressions Echo from 2015 shows ejection fraction of 65-70% Assessment & Plan This is a obese 68-year-old male with complicated history of diabetes, hypertension, COPD, gout, AAA, CHF of unknown type, CAD presenting here today status post surgical repair of left Achilles contracture secondary to charcot's he underwent a lengthening, fusion of left lateral foot. # status post surgical repair of left Achilles contracture secondary to charcot' s he underwent a lengthening, fusion of left lateral foot. -- Home medications for pain -- Added morphine IV 1-2 mg every 4 hours when necessary -- Podiatry is following -- It appears that podiatry is planning on discharging patient to the residential early next week. Their original H&P states 3-7 days from the date of admission. Patient will be going to need [facility] # dyspnea and orthopnea: Due to COPD exacerbation, community acquired pneumonia , obesity -- Chest x-ray 10/08 shows improved pulm edema -- Lasix 40 mg IV 1 time on 10/07,gave 20mg iv also on 10/08 # Acute on chronic COPD exacerbation: -- Duo nebs every 6 hours -- Albuterol every 4 hours when necessary -- Solu-Medrol 40 mg every 12hr: Patient reportedly has much improved because of steroids. Transitioned to prednisone 40 mg by mouth daily. Plan to continue for 3 more days # Community-acquired pneumonia: Patient states he was diagnosed and had 4 days of antibiotics prior to his surgery. POA -- As evidenced by the chest x-ray 10/05 night -- Ceftriaxone is added to doxycycline IV as he completed cefazolin from surgery -- COPD treatment as above -- Urine strep, legionella tests: Negative -- Respiratory viral panel: Negative # diabetes mellitus type II,uncontrolled -Patient's blood glucose hasn't been controlled.Partly due to patient poor historian of his home regimen and partly due to steroid. Patient was on Lantus 30 units twice a day on prior admission. will put him on Lantus 30 units twice a day and adjust accordingly -- A1c is ordered 7.7 # hypertension, chronic --Continue medications hydralazine, amlodipine, Metoprolol # COPD, chronic --Continue Spiriva and albuterol home medications: Discontinue Spiriva on 10/06 and replaced it with duo nebs for better control of his wheezing # gout --Continue home medications # Chronic congestive heart failure of unknown type --Continue home medication metoprolol, Lasix # Chronic pain -- We will hold pain medications -- Added morphine 1-2 mg every 4 hours when necessary for postoperative pain # sinusitis -- Patient is currently on Ancef per his surgeon -- We will obtain his home medication from his tomorrow -- We will start him on doxycycline 100 mg IV twice a day, ceftriaxone was added for pneumonia CODE STATUS: Full code ADM: Disposition : podiatry plans to discharge him to SNF level care by mid next week. He can complete the course of doxycycline by mouth. will probably be medically optimized in 1-2 days pending blood glucose control. VTE Prophylaxis: Sub-Q Heparin (Unfractionated) Resuscitation Status: CPR: Attempt Resuscitation ( is his alternate decision maker) Demetrio Tesfaye MD October 08, 2016 12:02 Assessment #11 right shoulder pain -- Consider Ordering x-ray if no resolution -- Consider Physical therapy consult Assessment #12 hyperuricemia 10/07 -- Patient was on a 10 units 3 times a day with meals +20 twice a day Lantus plus high sliding scale -- Due to patient eating well today, corticosteroids for COPD his blood glucose has been a problem -- Patient was given 20 units of extra NovoLog on 10/07 PM, as his blood glucose was around 400 late in the evening, he was made nothing by mouth. IV Fluids were started and 40 units of at bedtime Lantus (in stead of 20) + high level sliding scale was left on board. -- Patient may restart diet tomorrow a.m., we will need to check his total dose per 24 hours prior to adjusting his long-acting insulin on 10/08. -- As it stands he is on 40 units daily at bedtime Lantus, 10 units NovoLog 3 times a day with meals+ high dose sliding scale. Consider splitting his total insulin the last 24 hours 50% 50% and giving half of it as long-acting and the rest is mealtime insulins. CODE STATUS: Full code ADM: Disposition : podiatry plans to discharge him to SNF level care by mid next week. He can complete the course of doxycycline by mouth. May stop Solu- Medrol after his COPD exacerbation is resolved. May give him prednisone 20 twice a day for dischargex 5days. VTE Prophylaxis: Sub-Q Heparin (Unfractionated) Resuscitation Status: CPR: Attempt Resuscitation ( is his alternate decision maker) Demetrio Tesfaye MD October 08, 2016 12:02
[2016-10-08] MEDS ORDERED: Lactulose 20 Gm/30 mL 30 mL Syrup PO ONE (12:20)
[2016-10-08] MEDS ORDERED: Insulin GLARgine 100 Unit/mL Syringe SUBQ ONE (12:20)
--- NOTE | 2016-10-08 14:37 | NUR ---
Blood glucose Above 300 today. MD aware of values, additional insulin administered as ordered. Order also placed for diabetic teaching. Working with pt to educate regarding low-no sugar dietary options.
--- NOTE | 2016-10-08 15:44 | NUR ---
NUTRITION CONSULT MD order IPDE education. Provided pt education re diabetic diet and meal planning tips. Handouts given. Outpatient referral to diabetes education program given.
--- NOTE | 2016-10-08 16:03 | NUR ---
Social Work-continued d/c planning: Data:EMR Reviewed. Pt is on day 3 of hospitalization for left foot per H&P. Pt is not medically stable for discharge anticipate several more days. PT saw pt today and are recommending SNF placement. SW followed up with pt and Alyse [phone] to discuss discharge planning, SW role explained. SW explained recommendation of PT of SNF. Pt and agreeable to SNF placement. SW explained that pt would likely go under his MCR benefit. As conversation goes on pt is less agreeable to SNF and feels like he may want to go home. Pt confirms he is already open with [facility]. SW explained SW could follow up tomorrow with pt and . SW confirmed with Maria E for [facility] that pt is open with services and would need resume orders at discharge. SW provided access. Paperwork and PASRR in the chart. SW will continue to follow. Assessment:SNF vs home with HH. Plan:[facility] has accepted pt vs returning home with resume [facility]. SW to follow up with pt and again tomorrow. Paperwork and PASRR in the chart. SW will continue to follow. ARLENE Murillo
[2016-10-08] MEDS ORDERED: 0.9% Sodium Chloride 250 ML ONE (18:35)
[2016-10-08] MEDS: cefTRIAXone Inj 1,000 MG in Dextrose 5% Minibag Plus 50 ML IV SCH (18:40)
[2016-10-08] MEDS: Insulin GLARgine 100 Unit/mL Syringe SUBQ SCH (21:30)
--- NOTE | 2016-10-08 22:49 | PROG NOTE ---
[address] [address] PROGRESS NOTE PATIENT: JR RAPP : 1950 MR#: [id number] ADMIT: 10/05/2016 JOB ID: [id number] DATE: 10/08/2016 SUBJECTIVE: The patient is seen at bedside, resting comfortably. He states he feels well other than occasional productive cough. Specimens have been taken earlier today. He denies any fevers, nausea, vomiting, or other constitutional signs of infection. States his appetite has returned to normal. He describes pain in the left lower extremity becoming negligible and back to baseline. He denies any calf pain or other lower extremity complaint at this point. OBJECTIVE: Vitals: BP is 162/89, pulse 75, respirations 18, temperature 36.7 p.o. Pulse oximetry is 96% on room air sitting at bedside. PERTINENT LABORATORY DATA: Includes white count elevated 18.7, H and H 8.7, 28.3. The patient does show some left shift. Lymphocytes 5.3, neutrophils of 90.9. Chemistry remains stable with the exception of elevated BUN at 36 and random glucose at 296. Dressings are CDI to both lower extremities. I did not at today's visit disrupt his dressings but did inspect incisions and drain site yesterday. The drain was pulled and the lateral incision was found to be intact, stable and showing no signs of inflammation other than that to be expected after surgery. The patient has no calf tenderness nor did he have significant tenderness at the medial incision site. The toes have immediate CFT. No other significant findings. ASSESSMENT: 1. Good progress status post reconstruction of left Charcot foot deformity with lengthening of the Achilles tendon. 2. Diabetes with neurologic manifestations. PLAN: After evaluating the patient at bedside today, I did discuss with him my concern that his white count remains elevated. This could be due to respiratory tract issue or other site. Certainly some elevation postoperative with his level of surgery was to be expected, but I did anticipate it to drop off some time today. My plan would be to change dressings tomorrow to convert him towards soft cast and then fiberglass cast before discharge. This would be in alignment with medical stability. The patient did have a chest x-ray and sputum culture prior to my visit midday. I will follow the patient again tomorrow midday hopefully to find better lab results. In either case, I will be inspecting the incision site and the surgical limb more completely at tomorrow's visit. The patient's questions are answered. One thing of concern is that in preparing for the surgery, the patient had firmly committed to a detention facility for recovery. At this point, he states that he "needs to be home." He is now lobbying for return to home rather than detention. I hope to convince him otherwise as that was part of the preconditions of my taking on his case. I was very straightforward and direct with the patient with my concerns. He has a long history of poor decision-making in his home environment and, in this case that could lead to limb threatening or limb loss type complication. The patient was made aware of this. I will discuss this with him further tomorrow.
[2016-10-09] MEDS: Heparin 5,000 Unit/mL Inj SUBQ SCH ×4 (00:11→17:20)
[2016-10-09 02:14] VITALS: PULSE 68; RESP 18; O2SAT 95
[2016-10-09] MEDS: Albuterol-Ipratropium 3 mL Inhalation Solution NEB SCH ×4 (02:14→20:30)
--- NOTE | 2016-10-09 02:17 | NUR ---
Pain/Right foot color Patient stated that his greater pain is in his bilateral shoulders. Right shoulder pain is greater than left. Patient stated that he tripped over a cord last week and injured his shoulders. Feet pain is stated at a 5/10 on pain scale. Oxycodone PO and Morphine PO along with Morphine IVP administered . Patient is very insistent about pain medication schedule. VSS. Heart sounds are irregular. Call light within reach. Care continues. Addendum: 10/09/16 at 0232 by CORINA VÁSQUEZ RN On initial assessment, the patients right toes have a bro-leslee color to them compared to the left toes. Cap refill was less than 3 seconds. Patient able to move toes. Bilateral toes felt cool to the touch.
[2016-10-09 07:25] LABS: BASOPHILS % (AUTO) 0.1 % (0-3); EOSINOPHILS % (AUTO) 0.2 % (0-5); MONOCYTES % (AUTO) 7.8 % (4-12); Mean Corpuscular Hemoglobin 25.6 pg (27.0-35.0); Mean Corpuscular Volume 83.1 fL (81-100); NEUTROPHILS % (AUTO) 78.4 % (40-74); Platelet Count 317 bil/L (150-400)
[2016-10-09 07:51] VITALS: PULSE 70; RESP 18; O2SAT 96
[2016-10-09] MEDS: Morphine ER 15 mg (MS Contin) Tablet PO SCH ×2 (07:58→21:13)
[2016-10-09] MEDS: Insulin LISPRO 300 Unit/3 mL Inj SUBQ SCH ×4 (08:02→21:58)
[2016-10-09] MEDS: Fluticasone 0.05% 15 Spray/2 Gm 16 Gm Nasal Spray NASAL SCH ×2 (08:03→21:14)
[2016-10-09] MEDS: buPROPion XL 300 mg ER24 Tablet PO SCH (08:04)
[2016-10-09] MEDS: Insulin GLARgine 100 Unit/mL Syringe SUBQ SCH (08:05)
[2016-10-09 08:19] VITALS: BP 169/74; PULSE 69; RESP 18; O2SAT 94
[2016-10-09] MEDS ORDERED: 0.9% Sodium Chloride 250 ML ONE (08:20)
[2016-10-09] MEDS: Doxycycline Inj 100 MG in Dextrose 5% Minibag Plus 100 ML IV SCH ×2 (08:25→22:03)
[2016-10-09] MEDS ORDERED: predniSONE 20 mg Tablet PO SCH (08:30)
[2016-10-09 12:07] VITALS: BP 116/72; PULSE 84; RESP 19; O2SAT 98
--- NOTE | 2016-10-09 13:49 | PCM.PNMED ---
Subjective Date of Service October 09, 2016 Subjective Breathing improved. Prednisone discontinued. Blood glucose better controlled with increased Lantus. Exam Vital Signs Vital Sign - Last Date Time Temp Pulse Resp B/P Pulse Ox O2 Delivery O2 Flow Rate FiO2 10/09/16 12:07 36.7 84 19 116/72 98 Room Air 10/07/16 13:48 2.00 Intake and Output 10/08/16 10/08/16 10/09/16 Cumulative From/Thru 15:00 23:00 07:00 10/04/16 09:38 - 10/09/16 06:19 Intake Total 800 ml 233 ml 6765 ml Output Total 1000 ml 6805 ml Balance -200 ml 233 ml -40 ml Intake Oral 800 ml 3905 ml IV Total 233 ml 2860 ml Output Urine Total 1000 ml 6125 ml Drainage Total 80 ml Estimated Blood Loss 600 ml # Bowel Movements 0 Exam Gen.: Comfortable HEENT: NCAT Heart: Regular rate and rhythm no S3-S4 murmurs Lungs lung sounds are much improved, minimal wheezing Abdomen: Nontender nondistended, soft normal bowel sounds Extremities: Both extremities are wrapped in bandages only the last part of the toes are visible last dose is missing on the left side right side the whole foot is wrapped in dressings, it appears that the DONALD drain is removed Neuro: No focal deficits Psychiatric negative for anxiety IVs and Medications Medications Reviewed: Medications were reviewed in detail Lab and Diagnostics Result Diagram: 10/09/16 0710 10/09/16 0710 X-Rays, CTs and MRIs PROCEDURE: X-RAY CHEST ONE VIEW, PORTABLE ([id number]) INDICATIONS: pneumonia IMPRESSION: Interval improvement in diffuse ill-defined and groundglass opacities suggestive of improving pulmonary edema since 10/05/16, however recommend clinical correlation (atypical pneumonia in the differential). Dictated by: Joseph Petty M.D. on 10/08/2016 at 9:04 Cardiac Echo Impressions Echo from 2015 shows ejection fraction of 65-70% Assessment & Plan This is a obese 68-year-old male with complicated history of diabetes, hypertension, COPD, gout, AAA, CHF of unknown type, CAD presenting here today status post surgical repair of left Achilles contracture secondary to charcot's he underwent a lengthening, fusion of left lateral foot. # diabetes mellitus type II,uncontrolled -Patient's blood glucose hasn't been controlled.Partly due to patient poor historian of his home regimen and partly due to steroid. Patient was on Lantus 30 units twice a day on prior admission. He states he currently takes 20 units twice a day. Started Lantus 30 units twice a day, will lower to home dose of 20 twice a day -Patient's home easily regimen is erratic. He takes long-acting insulin as needed basis instead of standing. Diabetes education provided -- A1c 7.7 # dyspnea and orthopnea: Due to COPD exacerbation, suspected community acquired pneumonia, obesity -- Chest x-ray 10/08 shows improved pulm edema -- Lasix 40 mg IV 1 time on 10/07,gave 20mg iv also on 10/08 # Acute on chronic COPD exacerbation: -- Duo nebs every 6 hours -- Albuterol every 4 hours when necessary -- Initially treated with Solu-Medrol 40 mg every 12hr: Transitioned to prednisone 40 mg by mouth daily. No wheezing. Blood glucose uncontrolled. Discontinued today 10/09 # status post surgical repair of left Achilles contracture secondary to charcot' s he underwent a lengthening, fusion of left lateral foot. -- Home medications for pain -- Added morphine IV 1-2 mg every 4 hours when necessary -- Podiatry is following -- It appears that podiatry is planning on discharging patient to nursing home facility in 1-2 days. # Community-acquired pneumonia: Patient states he was diagnosed and had 4 days of antibiotics prior to his surgery. POA -- As evidenced by the chest x-ray 10/05 -- On Ceftriaxone and doxycycline, plan to discontinue up on discharge -- COPD treatment as above -- Urine strep, legionella tests: Negative -- Respiratory viral panel: Negative # hypertension, chronic --Continue medications hydralazine, amlodipine, Metoprolol # COPD, chronic --Continue Spiriva and albuterol home medications: Discontinue Spiriva on 10/06 and replaced it with duo nebs for better control of his wheezing # gout --Continue home medications # Chronic congestive heart failure of unknown type --Continue home medication metoprolol, Lasix # Chronic pain -- We will hold pain medications -- Added morphine 1-2 mg every 4 hours when necessary for postoperative pain # sinusitis -- Patient is currently on Ancef per his surgeon -- We will obtain his home medication from his [facility] -- We will start him on doxycycline 100 mg IV twice a day, ceftriaxone was added for pneumonia CODE STATUS: Full code ADM: Disposition : . will probably be medically optimized for discharge in 1-2 days pending blood glucose control. eventually to [facility] with Dr Merrill following ,likely tomorrow VTE Prophylaxis: Sub-Q Heparin (Unfractionated) Resuscitation Status: CPR: Attempt Resuscitation ( is his alternate decision maker) Demetrio Tesfaye MD October 09, 2016 13:49
--- NOTE | 2016-10-09 14:01 | PROG NOTE ---
[address] [address] PROGRESS NOTE PATIENT: JR RAPP : 1950 MR#: [id number] ADMIT: 10/05/2016 JOB ID: [id number] DATE: 10/09/2016 SUBJECTIVE: The patient is seen at bedside resting comfortably about midday. He just had lunch and states his appetite is good. He has been a little bit more somnolent today. He has, however, had adequate oxygen saturation. States he may not have slept well last night but he says his foot is feeling well. He denies any fevers, nausea, vomiting, or other constitutional signs of infection. He states that after our conversation yesterday he has done some reconsidering and is willing, in fact, to spend time in a nursing home rehab facility to adequately care for his left foot. OBJECTIVE: Vitals: BP is 116/72, pulse 84, respirations 18, temperature 36.7 p.o., pulse oximetry shows 98% on room air. PERTINENT LABORATORY DATA: Includes a continued elevated white count at 19.4 but a slight improvement in his left shift. Neutrophils down to 78 from 90 and lymphocytes up to 12.9 from 5.3. Chemistry appears stable with slight elevation in creatinine at 1.3. Patient is better but suboptimal glucose 161, random. Dressings are CDI to both lower extremities. Right lower extremity dressing was not disrupted. Left lower extremity dressing was removed down to incisions. There were no signs of infection. Either incision appeared to be coapting well. There was some organized hematoma around the Achilles incision but the incision itself appears to be closing well. Edema is minimal. Ecchymosis negligible. Position and range of motion appear to be optimal. Drain site is sealed. No signs of complication. ASSESSMENT: 1. Good progress, status post reconstruction of the left foot. 2. Diabetes with neurologic manifestations. 3. Charcot arthropathy with associated deformity. PLAN: After evaluating the patient at bedside today, I did discuss with him discharge planning for nursing home. I anticipate the improvement in his left wrist suggests we will see a better white count tomorrow. I would like to place him in a cast after a bit more compression with Durga bandages. That is, I replaced dressings with saline and Betadine-moistened gauze, dry gauze, Kerlix and Durga bandages incorporating his posterior fiberglass splint. The surgery site appears to be doing very well without signs of inflammation or complication such as infection. However, given the patient's weight, his deconditioning and risk of bearing weight on a limb which would be catastrophic, I would like to put him in a fiberglass [id number] splint before transfer to nursing home. I will keep the compression bandages on today, hopefully converting this to a cast midday tomorrow. I anticipate medical clearance for discharge in the next couple of days pending improved white count. My thanks to the Hospitalist team and our staff here for the excellent care they have provided for this gentleman.
--- NOTE | 2016-10-09 14:13 | NUR ---
Social Work-Readiness for Discharge Data:EMR Reviewed. Pt is on day 4 of hospitalization for left foot per H&P. Pt is not medically stable for discharge, anticipate 1-2 more days. PT saw pt today and are recommending SNF placement. SW spoke with pt today regarding discharge plan, SNF placement. Pt agreeable to discharge to [facility]. [facility] has accepted pt with MD Merrill to follow. Paperwork and PASRR in the chart. SW will continue to follow. Assessment: Pt who would benefit from SNF. Plan: [facility] has accepted pt with MD Merrill to follow. Pt agreeable to discharge to SNF. Paperwork and PASRR in the chart. SW will continue to follow. ARLENE Otto
[2016-10-09 14:53] VITALS: BP 146/100; PULSE 56; O2SAT 93
--- NOTE | 2016-10-09 18:34 | NUR ---
Pain Pt complains of 6/10 pain when 4hrs is up post Oxy administration. Oxy given and reduces patient to a 4-5/10 pain Pt sleeping off and on in chair this shift appears comfortable. Call light w/in reach
[2016-10-09] MEDS: cefTRIAXone Inj 1,000 MG in Dextrose 5% Minibag Plus 50 ML IV SCH (19:09)
[2016-10-09] MEDS ORDERED: Insulin GLARgine 100 Unit/mL Syringe SUBQ SCH (20:30)
[2016-10-09 21:35] VITALS: BP 173/83; PULSE 65; RESP 20; O2SAT 96
[2016-10-10] VITALS (8 sets, daily range): BP systolic 141–166; BP diastolic 75–81; PULSE 56–69; RESP 16–18; O2SAT 93–95
[2016-10-10] MEDS: Heparin 5,000 Unit/mL Inj SUBQ SCH ×3 (00:42→16:34)
[2016-10-10] MEDS: Albuterol-Ipratropium 3 mL Inhalation Solution NEB SCH ×4 (02:31→21:08)
--- NOTE | 2016-10-10 03:37 | NUR ---
Pain Patient's pain well managed with Oxycodone q4. Patient able to get some rest. Blood sugar has been well managed as well. Patient A&OX3. Patient back and fourth between chair and bed. Patient sleeps semi-fowlers. Patient has infrequent, productive cough. Vitals stable.
[2016-10-10 06:43] LABS: BASOPHILS % (AUTO) 0.2 % (0-3); EOSINOPHILS % (AUTO) 2.6 % (0-5); MONOCYTES % (AUTO) 9.6 % (4-12); Mean Corpuscular Hemoglobin 26.4 pg (27.0-35.0); Mean Corpuscular Volume 84.7 fL (81-100); NEUTROPHILS % (AUTO) 63.3 % (40-74); Platelet Count 296 bil/L (150-400)
[2016-10-10] MEDS: Insulin LISPRO 300 Unit/3 mL Inj SUBQ SCH ×4 (07:47→22:05)
[2016-10-10] MEDS: Morphine ER 15 mg (MS Contin) Tablet PO SCH ×2 (08:34→20:30)
[2016-10-10] MEDS: Insulin GLARgine 100 Unit/mL Syringe SUBQ SCH ×2 (08:35→22:01)
[2016-10-10] MEDS: Fluticasone 0.05% 15 Spray/2 Gm 16 Gm Nasal Spray NASAL SCH ×2 (09:23→22:00)
[2016-10-10] MEDS: buPROPion XL 300 mg ER24 Tablet PO SCH (09:28)
--- NOTE | 2016-10-10 11:07 | NUR ---
Called [facility] and updated them on potential discharge this afternoon, per SENIOR HARDWARE ENGINEER we are waiting on patient to get a splint.
--- NOTE | 2016-10-10 14:49 | PROG NOTE ---
[address] [address] PROGRESS NOTE PATIENT: JR RAPP : 1950 MR#: [id number] ADMIT: 10/05/2016 JOB ID: [id number] DATE: 10/10/2016 SUBJECTIVE: The patient is seen at bedside resting comfortably. States that he has had no fevers, nausea, vomiting, or other constitutional signs of infection. He has also experienced less shortness of breath today. He has been using incentive spirometry as part of his respiratory treatment. He is also relieved to hear that his white count is beginning to normalize. He is anxious to be discharged to intermediate and begin the rehabilitation process. He has thankfully recommitted himself to that plan. OBJECTIVE: Vitals: BP is 166/78, pulse 62, respirations 18, temperature 37.2 p.o. Pulse oximetry shows 95% on room air. Pertinent laboratory data includes white count now down to 12.8 with resolved left shift. H and H remain low but improving at 9.5 and 30.5. The patient's chemistry also is improving with BUN down to 34 from 37 and creatinine at 38. Dressings are CDI to both lower extremities. Upon removal of dressing on the left side, I find some serosanguineous drainage from the two incision sites. This is to be expected due to the nature of the surgery and the patient's anticoagulation status. Otherwise, they appear to be coapting well. About 80% of each of these has coapted to a dry state. The foot is in good mechanical position, and he has good range of motion of the ankle joint which is marked improvement over preoperative findings. Also, lateral column appears to be very stable, anatomically ideal given the deformity. The plantar wound on the left side also continues to reduce in size. It is now down to 2.2 x 1.8 cm by a negligible depth to good granular bed. There is some rugae and fissures within the granular tissue but these also appear to be filling in. There is present biofilm, removed during the course of the stay. On the right side, the patient has also improvement of wound, now down to 2.0 x 1.8 by negligible depth. There is biofilm present with good soft tissue envelope overlying bone prominence. The patient does have considerable equinus deformity with tight Achilles and midfoot breech particularly at the lateral column, as was previously the case with the contralateral foot. There were no signs of infection associated with either foot. Calves remain nontender, and there is no tenderness in the popliteal fossa. Biofilm also removed from the right plantar foot wound. ASSESSMENT: 1. Good progress, status post reconstruction of left Charcot foot and lengthening of the Achilles tendon. 2. Bilateral diabetic foot wounds. 3. Charcot arthropathy of both feet, post reconstruction on the left side. 4. Diabetes with neurologic manifestations. PLAN: After evaluating the patient today, I did find it necessary to perform some selective debridement only, removing all nonviable tissue with a curette from both plantar wounds. This was down to a good bleeding base. I placed dressings of saline and Betadine moistened gauze, dry gauze and Kerlix to the surgical sites on the left side. I placed the same dressings and then followed this up with a [id number] fiberglass cast. This is a protective cast rather than weightbearing. On the right side I backed the aforementioned dressing with further Kerlix and Durga bandages from MTPJ to tibial tuberosity. Dressings on both sides shall will remain clean, dry and intact until his followup visit at the [facility] next Saturday. At that point, I anticipate transition to a more frequent change of dressing at least on the right side depending upon the appearance of the left side. At this point, the orthopedic reconstruction is greatest priority on the left side. The patient's questions are answered. It is my understanding that he is currently being medically cleared for discharge to intermediate. I filled out in the physician order section the above mentioned plan. The scheduled visit at the [facility]ound Center next Saturday can be confirmed with Wound Center staff. The patient will receive transportation from the facility. I would be happy to answer any questions, provide any further assistance in the care of this nice gentleman. I greatly appreciate the attention and expertise of our Hospitalist team and the general medical staff in the care of this very nice, quite complex gentleman.
--- NOTE | 2016-10-10 15:21 | PCM.DIMED ---
Discharge Instructions Date of Service October 10, 2016 Dates of Hospitalization October 05, 2016 at 17:32 Discharge Diagnosis Discharge Diagnosis # diabetes mellitus type II,uncontrolled # Acute on chronic COPD exacerbation: # status post surgical repair of left Achilles contracture secondary to charcot' s he underwent a lengthening, fusion of left lateral foot. # Community-acquired pneumonia: # hypertension, chronic # gout # Chronic congestive heart failure of unknown type # Chronic pain Diet Diabetic Activity Other (continue physical therapy at [facility] facility.) Call your provider Fever or Chills, Shortness of breath, Bleeding, Chest pain, Vomitting, Excessive diarrhea, Weakness (unilateral), Other Patient Instructions You were hospitalized for elective foot surgery. You underwent reconstruction of left Charcot foot and lengthening of the Achilles tendon.You had suspected COPD exacerbation postoperatively treated with steroid and antibiotics. He had uncontrolled blood sugar partly due to steroid. I have lowered your home Lantus from 20 units twice a day to 15 units twice a day which seems better regimen. Please continue taking blood glucose 3 times a day and adjust accordingly. Completed antibiotics and steroid.You had slight kidney disfunction during hospitalization probably due to dehydration. Please get your kidney function test checked tomorrow on 10/11/16 and ask the nurse at [facility] facility to page Dr Merrill at [facility] or me ( ) at [phone] during the day 7Am-7Pm if creatinine is more than 1.38 which is the discharge creatinine .baseline Creatinine 1.1-1.2 . Follow-up plan Please follow-up with PCP 1 week after discharge from [facility] facility Follow-up Provider: Colleen Doyle MD Follow-up with PCP in: 1 week Provider: Alejandro Merrill MD Follow-up in: 1 week Mid-level Provider (F9): Ayush Chopra DPM Follow-up with Mid-level in: 1 week Demetrio Tesfaye MD October 10, 2016 15:21
[2016-10-10] MEDS ORDERED: MORP10CA12 PO (15:38)
[2016-10-10] MEDS ORDERED: OXYC-474 PO (15:38)
[2016-10-10] MEDS ORDERED: INSU100I13 SUBQ (15:38)
[2016-10-10] MEDS ORDERED: INSLIS SUBQ (15:38)
--- NOTE | 2016-10-10 16:28 | NUR ---
Social Work: Readiness for d/c Data: Pt is on day 5 of hospitalization. EMR reviewed. D/C order are in. FLOWER PICKER had previously notified [facility] that pt may be ready for d/c today. FLOWER PICKER called [facility] once D/C orders were in, Georgie stephenson states that they are having trouble with pt's insurance, and that pt's Medicare is secondary to his VA and they are not contracted with pt's primary insurance. FLOWER PICKER notified UR RN and UR specialist. FLOWER PICKER will continue to follow. ARLENE Cronin
--- NOTE | 2016-10-10 16:36 | PCM.DC.MED ---
Discharge Summary Date of Service October 10, 2016 Dates of Hospitalization Date of Hospital Admission October 05, 2016 at 17:32 Date of Discharge: October 10, 2016 Providers: Admitting Physician: Ayush Chopra DPM Primary Care Physician: Colleen Doyle MD Attending Physician: Ayush Chopra DPM Diagnosis at Time of Discharge Diagnosis at Time of Discharge # diabetes mellitus type II,uncontrolled # Acute on chronic COPD exacerbation: # status post surgical repair of left Achilles contracture secondary to charcot' s he underwent a lengthening, fusion of left lateral foot. # Community-acquired pneumonia: # hypertension, chronic # gout # Chronic congestive heart failure of unknown type # Chronic pain Procedures XRay, CTs & MRIs PROCEDURE: X-RAY CHEST ONE VIEW, PORTABLE ([id number]) INDICATIONS: pneumonia IMPRESSION: Interval improvement in diffuse ill-defined and groundglass opacities suggestive of improving pulmonary edema since 10/05/16, however recommend clinical correlation (atypical pneumonia in the differential). Dictated by: Joseph Petty M.D. on 10/08/2016 at 9:04 Cardiac Echo Impression Echo from 2015 shows ejection fraction of 65-70% Brief History per HPI 68-year-old obese white male with past medical history of diabetes, hypertension , COPD, gout, arthritis, abdominal aortic aneurysm, leg edema, congestive heart failure of unknown type is presenting after undergoing his surgery in the OR for left Achilles contracture lengthening and also fusion of left lateral foot . Dr. Stafford is his magistrate assistant who performed the operation. \ Patient is saying that he has been suffering from sinusitis or pneumonia he thinks he is on a medication that starts with C but cannot recall the name. He called his at home to see what medication as his pharmacy [facility] is closed. No one picked up the phone. He is currently on Ancef per surgery. He states that he had it for a week prior to surgery he also has chronic left shoulder pain that was present before the surgery. He states that because of his sinusitis his left side of face is tender is draining more from left side of the face and left ear hurts. He denies current fevers or chills. He had his meal and ate well. In the room he states that he is wheezing a lot. He felt better after he sat him up. He states that he went through her surgery is okay without complications. He feels that his left side of his face is numb but that is also sinus pain that he normally experiences. He states sometimes gout in his makes him feel this way too. Patient denies chest pain, nausea vomiting. He is giving history but at times dozing off. States he will need his pain meds tonight. States he is not on oxygen at night. He confirms to me that he discussed going to a senior care for recovery after the surgery with his surgeon. He also bought electric wheelchair in preparation for the recovery. Prior to this he was walking without a walker at home. Patient has an insulin dosing per his home medication list. He says he takes 25 units of short-acting 6 times a day. He cannot confirm or deny this, his is not available on the phone. His pharmacy is closed. Patient is a patient of Dr. Dolye at [facility]. Hospital Course This is a obese 68-year-old male with complicated history of diabetes, hypertension, COPD, gout, AAA, CHF of unknown type, CAD presenting here today status post surgical repair of left Achilles contracture secondary to charcot's he underwent a lengthening, fusion of left lateral foot. # diabetes mellitus type II,uncontrolled -Patient's blood glucose hasn't been controlled.Partly due to patient poor historian of his home regimen and partly due to steroid. Patient was on Lantus 30 units twice a day on prior admission. He states he currently takes 20 units twice a day. lowered dose of 20 twice a day which seems to be appropriate dose. Continue sliding scale -Patient's home easily regimen is erratic. He takes long-acting insulin as needed basis instead of standing. Diabetes education provided -- A1c 7.7 # NITESH Patient's creatinine 1.38 today, baseline creatinine 1.1 to 1.2. -Patient is staying here overnight pending insurance authorization. Recheck creatinine tomorrow Continue oral rehydration # dyspnea and orthopnea: Due to COPD exacerbation, suspected community acquired pneumonia, obesity -- Chest x-ray 10/08 shows improved pulm edema -- Lasix 40 mg IV 1 time on 10/07,gave 20mg iv also on 10/08 #Leukocytosis, improving with discontinuation of steroid -Completed antibiotic # Acute on chronic COPD exacerbation: -- Duo nebs every 6 hours -- Albuterol every 4 hours when necessary -- Initially treated with Solu-Medrol 40 mg every 12hr: Transitioned to prednisone 40 mg by mouth daily. No wheezing. Blood glucose uncontrolled. 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 -- Home medications for pain -- Podiatry is following -- Follow-up with podiatry next Saturday outpatient # Community-acquired pneumonia: Patient states he was diagnosed and had 4 days of antibiotics prior to his surgery. POA -- As evidenced by the chest x-ray 10/05 -- Treated with Ceftriaxone and doxycycline, discontinue antibiotics today 10/10 -- COPD treatment as above -- Urine strep, legionella tests: Negative -- Respiratory viral panel: Negative # hypertension, chronic --Continue medications hydralazine, amlodipine, Metoprolol # gout --Continue home medications # Chronic congestive heart failure of unknown type --Continue home medication metoprolol, Lasix # Chronic pain -- We will hold pain medications -- Added morphine 1-2 mg every 4 hours when necessary for postoperative pain CODE STATUS: Full code ADM: Disposition : medically optimized for discharge eventually to [facility] with Dr Merrill following ,likely tomorrow . Exam Vital Signs (Last) Date Time Temp Pulse Resp B/P Pulse Ox O2 Delivery O2 Flow Rate FiO2 10/10/16 14:39 62 18 93 Room Air 10/10/16 12:15 37.2 166/78 10/07/16 13:48 2.00 Exam Gen.: Comfortable HEENT: NCAT Heart: Regular rate and rhythm no S3-S4 murmurs Lungs lung sounds are much improved, minimal wheezing Abdomen: Nontender nondistended, soft normal bowel sounds Extremities: Both extremities are wrapped in bandages only the last part of the toes are visible last dose is missing on the left side right side the whole foot is wrapped in dressings, DONALD drain is removed Neuro: No focal deficits Psychiatric negative for anxiety Test 10/05/16 10:16 10/05/16 20:45 10/06/16 00:20 10/07/16 04:52 Hemoglobin A1c 7.7% (4.8-5.6) Pro-B-Type Natriuretic Peptide 502.9pg/mL (0-376) Urine Color Straw (YELLOW) Urine Appearance Clear (CLEAR,HAZY) Urine pH 5.5 (5.0-8.0) Urine Specific Tappen 1.010 (1.003-1.035) Urine Protein Tracemg/dL (NEG,TRACE) Urine Glucose (UA) Negativemg/dL (NEGATIVE) Urine Ketones Negativemg/dL (NEGATIVE) Urine Occult Blood Negative (NEGATIVE) Urine Nitrite Negative (NEGATIVE) Urine Bilirubin Negative (NEGATIVE) Urine Urobilinogen Normalmg/dL (NORMAL) Urine Leukocyte Esterase Negative (NEGATIVE) Urine RBC 0-2/hpf (0-2) Urine WBC 0-5/hpf (0-5) Urine Epithelial Cells Occasional/hpf (NONE-MOD) Urine Crystals None seen (NONE SEEN) Urine Bacteria None/hpf (NONE-FEW) Urine Hyaline Casts Rare/lpf (NONE) Urine Granular Casts None seen (NONE SEEN) Urine Waxy Casts None seen (NONE SEEN) Urine Red Blood Cell Casts None seen (NONE SEEN) Urine White Blood Cell Casts None seen (NONE SEEN) Urine Mucus None seen (None Seen) Urine Trichomonas None seen (NONE SEEN) Urine Yeast None (NONE SEEN) Urinalysis Comment None Urine Culture Reflexed Not indicated Urine Legionella pneumophilia Ag Negative (Negative) Hold Urine Received (Received) Test 10/09/16 07:10 10/10/16 06:15 Magnesium Level 2.0mg/dL (1.6-2.6) White Blood Count 12.8th/mm3 (3.8-10.1) Red Blood Count 3.60mil/mm3 (4.40-5.80) Hemoglobin 9.5g/dL (13.8-17.2) Hematocrit 30.5% (41.0-50.0) Mean Corpuscular Volume 84.7fL (81-100) Mean Corpuscular Hemoglobin 26.4pg (27.0-35.0) Mean Corpuscular Hemoglobin Concent 31.1% (32.0-37.0) Red Cell Distribution Width 16.1% (12.3-15.4) Platelet Count 296bil/L (150-400) Neutrophils (%) (Auto) 63.3% (40-74) Lymphocytes (%) (Auto) 23.5% (14-46) Monocytes (%) (Auto) 9.6% (4-12) Eosinophils (%) (Auto) 2.6% (0-5) Basophils (%) (Auto) 0.2% (0-3) Sodium Level 144mEq/L (134-144) Potassium Level 4.5mEq/L (3.5-5.2) Chloride Level 103mEq/L (97-108) Carbon Dioxide Level 29mmol/L (18-29) Blood Urea Nitrogen 34mg/dL (8-27) Creatinine 1.38mg/dL (0.76-1.27) Estimat Glomerular Filtration Rate 55mL/min (>59) Glucose Level 75mg/dL (60-99) Calcium Level 9.1mg/dL (8.5-10.1) Total Bilirubin 0.2mg/dL (0.0-1.2) Aspartate Amino Transf (AST/SGOT) 18U/L (0-50) Alanine Aminotransferase (ALT/SGPT) 11U/L (0-44) Alkaline Phosphatase 68U/L (25-160) Total Protein 6.4g/dL (6.4-8.4) Albumin 3.3g/dL (3.4-5.0) Procalcitonin 0.12ng/mL (0.00-0.08) Discharge Medications Discharge Medications Albuterol Neb Soln (Albuterol Neb Soln) 2.5 Mg/3 Ml Vial.neb 3 MG NEB Q4H ( Reported) Amlodipine (Amlodipine) 5 Mg Tablet 10 MG PO DAILY Prescribed by: VINOD TESFAYE MD Aspirin (Aspirin) 81 Mg Tablet 81 MG PO DAILY (Reported) Atorvastatin Calcium (Atorvastatin Calcium) 10 Mg Tablet 10 MG PO HS Prescribed by: VINOD TESFAYE MD Bupropion ER (Bupropion ER) 300 Mg Tab.er.24h 300 MG PO DAILY (Reported) Citalopram (Citalopram) 20 Mg Tablet 40 MG PO DAILY (Reported) Folic Acid/Multivit-Minerals (Centrum Flavor Burst Adult Chw) 100 Mcg Tab.chew 100 MCG PO DAILY (Reported) Furosemide (Furosemide) 40 Mg Tablet 40 MG PO DAILY (Reported) Hydralazine (Hydralazine) 50 Mg Tablet 100 MG PO TID Prescribed by: VINOD TESFAYE MD Insulin Glargine (Lantus U100 Solostar Insulin Pen) 100 Unit/1 Ml Insuln.pen 15 UNIT SUBQ BID Prescribed by: VINOD TESFAYE MD Insulin Human Lispro (HumaLOG U100 Insulin Vial) 100 Unit/Ml Unit 0 UNIT SUBQ WMHS Check blood sugars before meals and at bedtime. Use correction factor only before meals. Blood Sugar Lispro Correction: <151, 0 units; 151-175, 1 unit; 176-200, 2 units; 201-225, 3 units; 226-250, 4 units; 251-275, 5 units; 276-300 , 6 units; 301-325, 7 units; 326-350, 8 units; 351-375, 9 units; 376-400, 10 units; >400, 12 units. Prescribed by: VINOD TESFAYE MD Metoprolol Tartrate (Metoprolol Tartrate) 50 Mg Tablet 50 MG PO BID (Reported) Morphine Sulfate ER (Morphine Sulfate ER) 10 Mg Capsule 15 MG PO BID Prescribed by: VINOD TESFAYE MD Potassium Chloride ER (Potassium Chloride ER) 10 Meq Tablet 10 MEQ PO DAILY ( Reported) TAKE WITH FOOD Ranitidine (Ranitidine) 150 Mg Capsule 150 MG PO DAILY (Reported) Tiotropium Laughlin (Spiriva Respimat) 4 Gm Mist.inhal 4 GM IH HS (Reported) As needed Albuterol Sulfate (Ventolin HFA Inhaler) 200 Puff/18 Gm Inhaler 1 PUFF INH Q4 PRN PRN For Wheezing (Reported) Allopurinol (Allopurinol) 300 Mg Tablet 300 MG PO DAILY PRN PRN gout (Reported) Colchicine (Colchicine) 0.6 Mg Tablet 0.6 MG PO PRN Gout (Reported) Oxycodone (Roxicodone) 5 Mg Tablet 15 MG PO 6x day PRN PRN For Pain Prescribed by: VINOD TESFAYE MD Followup Plan Disposition: [facility] Follow-up plan Please follow-up with PCP 1 week after discharge from care home facility Discharge Diet: Diabetic Discharge Activity: Other (continue physical therapy at care home facility.) Patient Instructions You were hospitalized for elective foot surgery. You underwent reconstruction of left Charcot foot and lengthening of the Achilles tendon.You had suspected COPD exacerbation postoperatively treated with steroid and antibiotics. He had uncontrolled blood sugar partly due to steroid. I have lowered your home Lantus from 20 units twice a day to 15 units twice a day which seems better regimen. Please continue taking blood glucose 3 times a day and adjust accordingly. Completed antibiotics and steroid.You had slight kidney disfunction during hospitalization probably due to dehydration. Please get your kidney function test checked tomorrow on 10/11/16 and ask the nurse at care home facility to page Dr Merrill at [facility] or me ( ) at [phone] during the day 7Am-7Pm if creatinine is more than 1.38 which is the discharge creatinine .baseline Creatinine 1.1-1.2 . Follow-up Provider: Colleen Doyle MD Follow-up with PCP in: 1 week Provider: Alejandro Merrill MD Follow-up in: 1 week Mid-level Provider: Ayush Chopra DPM Follow-up with Mid-level in: 1 week Time spent 35 minutes copies to: Colleen Doyle MD; Alejandro Merrill MD, Melaku MD October 10, 2016 16:36
[2016-10-11] MEDS: Heparin 5,000 Unit/mL Inj SUBQ SCH ×2 (00:25→09:03)
[2016-10-11 02:34] VITALS: PULSE 83; RESP 18; O2SAT 96
[2016-10-11] MEDS: Albuterol-Ipratropium 3 mL Inhalation Solution NEB SCH ×2 (02:34→07:36)
--- NOTE | 2016-10-11 03:43 | NUR ---
Pain PO Oxycodone and PO MS Contin given for pain. Pt. rates pain 5/10. Pt. states "I feel like the pain is like gout pain". Pain regimen effective for pain. Will continue to monitor.
[2016-10-11 04:40] VITALS: BP 165/76; PULSE 67; RESP 20; O2SAT 94
[2016-10-11] MEDS: Insulin LISPRO 300 Unit/3 mL Inj SUBQ SCH ×2 (07:28→12:10)
[2016-10-11 08:10] LABS: BASOPHILS % (AUTO) 0.2 % (0-3); EOSINOPHILS % (AUTO) 3.3 % (0-5); MONOCYTES % (AUTO) 8.4 % (4-12); Mean Corpuscular Hemoglobin 26.3 pg (27.0-35.0); Mean Corpuscular Volume 83.5 fL (81-100); NEUTROPHILS % (AUTO) 69.8 % (40-74); Platelet Count 272 bil/L (150-400)
[2016-10-11 08:46] LABS: Magnesium 1.9 mg/dL (1.6-2.6)
[2016-10-11] MEDS: Fluticasone 0.05% 15 Spray/2 Gm 16 Gm Nasal Spray NASAL SCH (08:59)
[2016-10-11] MEDS: Morphine ER 15 mg (MS Contin) Tablet PO SCH (09:01)
[2016-10-11] MEDS: buPROPion XL 300 mg ER24 Tablet PO SCH (09:02)
[2016-10-11] MEDS: Insulin GLARgine 100 Unit/mL Syringe SUBQ SCH (09:04)
--- NOTE | 2016-10-11 09:28 | PCM.DIMED ---
Discharge Instructions Date of Service October 11, 2016 Dates of Hospitalization October 05, 2016 at 17:32 Discharge Diagnosis Discharge Diagnosis # diabetes mellitus type II,uncontrolled # Acute on chronic COPD exacerbation: # status post surgical repair of left Achilles contracture secondary to charcot' s he underwent a lengthening, fusion of left lateral foot. # Community-acquired pneumonia: # hypertension, chronic # gout # Chronic congestive heart failure of unknown type # Chronic pain Diet Diabetic Activity Other (continue physical therapy at long term facility.) Call your provider Fever or Chills, Shortness of breath, Bleeding, Chest pain, Vomitting, Excessive diarrhea, Weakness (unilateral), Other Patient Instructions You were hospitalized for elective foot surgery. You underwent reconstruction of left Charcot foot and lengthening of the Achilles tendon.You had suspected COPD exacerbation postoperatively treated with steroid and antibiotics. He had uncontrolled blood sugar partly due to steroid. I have lowered your home Lantus from 20 units twice a day to 15 units twice a day which seems better regimen. Please continue taking blood glucose 3 times a day and adjust accordingly. Completed antibiotics and steroid. Follow-up plan Please follow-up with PCP 1 week after discharge from long term facility Follow-up Provider: Colleen Doyle MD Follow-up with PCP in: 1 week Provider: Alejandro Merrill MD Follow-up in: 1 week Mid-level Provider (F9): Ayush Chopra DPM Follow-up with Mid-level in: 1 week Demetrio Tesfaye MD October 11, 2016 09:28
--- NOTE | 2016-10-11 10:44 | NUR ---
Called and left message for Cabrera at [facility], patient is not willing to give another preference at this point. Patient has history at [facility], patient is using his VA for this hospital admission but holds Medicare and he has opened his Medicare benefit by completing three midnights here as inpatient. Updated TEXTILE CUTTING MACHINE OPERATOR
--- NOTE | 2016-10-11 12:01 | NUR ---
Social Work: Discharge D: EMR reviewed. Pt is on day 6 of hospitalization. PT has deemed SNF medically necessary for pt's recovery after discharge. Pt has been accepted and insurance authorized for stay at [facility]. AMADOR confirmed that [facility] will provide transport for pt at 14:00 today. AMADOR called Sarahy to confirm pick-up time. Cyn confirmed she will complete SNF transfer packet. A: Pt for whom SNF has been deemed medically necessary by PT for rehabilitation after discharge. P: [facility] to provide transport for pt at 14:00 today. Pt and and been updated and are agreeable to plan. AMADOR confirmed transport time with RN and . ARLENE Judge
--- NOTE | 2016-10-11 12:01 | NUR ---
Pt accepted to [facility] and insurance authorized.
--- NOTE | 2016-10-11 12:10 | PCM.DC.MED ---
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 # Community-acquired pneumonia: # hypertension, chronic # gout # Chronic congestive heart failure of unknown type # Chronic pain Procedures XRay, CTs & MRIs PROCEDURE: X-RAY CHEST ONE VIEW, PORTABLE ([id number]) INDICATIONS: pneumonia IMPRESSION: Interval improvement in diffuse ill-defined and groundglass opacities suggestive of improving pulmonary edema since 10/05/16, however recommend clinical correlation (atypical pneumonia in the differential). Dictated by: Joseph Petty M.D. on 10/08/2016 at 9:04 Cardiac Echo Impression Echo from 2015 shows ejection fraction of 65-70% Brief History per HPI 68-year-old obese white male with past medical history of diabetes, hypertension , COPD, gout, arthritis, abdominal aortic aneurysm, leg edema, congestive heart failure of unknown type is presenting after undergoing his surgery in the OR for left Achilles contracture lengthening and also fusion of left lateral foot . Dr. Stafford is his batcher operator who performed the operation. \ Patient is saying that he has been suffering from sinusitis or pneumonia he thinks he is on a medication that starts with C but cannot recall the name. He called his at home to see what medication as his pharmacy [facility] is closed. No one picked up the phone. He is currently on Ancef per surgery. He states that he had it for a week prior to surgery he also has chronic left shoulder pain that was present before the surgery. He states that because of his sinusitis his left side of face is tender is draining more from left side of the face and left ear hurts. He denies current fevers or chills. He had his meal and ate well. In the room he states that he is wheezing a lot. He felt better after he sat him up. He states that he went through her surgery is okay without complications. He feels that his left side of his face is numb but that is also sinus pain that he normally experiences. He states sometimes gout in his makes him feel this way too. Patient denies chest pain, nausea vomiting. He is giving history but at times dozing off. States he will need his pain meds tonight. States he is not on oxygen at night. He confirms to me that he discussed going to a [facility] for recovery after the surgery with his surgeon. He also bought electric wheelchair in preparation for the recovery. Prior to this he was walking without a walker at home. Patient has an insulin dosing per his home medication list. He says he takes 25 units of short-acting 6 times a day. He cannot confirm or deny this, his is not available on the phone. His pharmacy is closed. Patient is a patient of Dr. Doyle at [facility]. Hospital Course This is a obese 68-year-old male with complicated history of diabetes, hypertension, COPD, gout, AAA, CHF of unknown type, CAD presenting here today status post surgical repair of left Achilles contracture secondary to charcot's he underwent a lengthening, fusion of left lateral foot. # diabetes mellitus type II,uncontrolled -Patient's blood glucose hasn't been controlled.Partly due to patient poor historian of his home regimen and partly due to steroid. Patient was on Lantus 30 units twice a day on prior admission. He states he currently takes 20 units twice a day at home prior to admission. lowered dose of 15 twice a day which seems to be appropriate dose. Continue sliding scale -Patient's home easily regimen is erratic. He takes long-acting insulin as needed basis instead of standing. Diabetes education provided -- A1c 7.7 # NITESH,resolved Patient's creatinine 1.38 10/10,back to baseline creatinine 1.1 on 10/11 Continue oral rehydration # dyspnea and orthopnea: Due to COPD exacerbation, suspected community acquired pneumonia, obesity -- Chest x-ray 10/08 shows improved pulm edema -- Lasix 40 mg IV 1 time on 10/07,gave 20mg iv also on 10/08 #Leukocytosis, improving with discontinuation of steroid -Completed antibiotic # Acute on chronic COPD exacerbation: -- Duo nebs every 6 hours -- Albuterol every 4 hours when necessary -- Initially treated with Solu-Medrol 40 mg every 12hr: Transitioned to prednisone 40 mg by mouth daily. No wheezing. Blood glucose uncontrolled. 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 -- Home medications for pain -- Podiatry is following -- Follow-up with podiatry next Saturday outpatient # Community-acquired pneumonia: Patient states he was diagnosed and had 4 days of antibiotics prior to his surgery. POA -- As evidenced by the chest x-ray 10/05 -- Treated with Ceftriaxone and doxycycline, discontinue antibiotics 10/10 -- COPD treatment as above -- Urine strep, legionella tests: Negative -- Respiratory viral panel: Negative # hypertension, chronic --Continue medications hydralazine, amlodipine, Metoprolol # gout --Continue home medications # Chronic congestive heart failure of unknown type --Continue home medication metoprolol, Lasix CODE STATUS: Full code ADM: Disposition : medically optimized for discharge eventually to [facility] SNf with Dr Merrill following , Exam Vital Signs (Last) Date Time Temp Pulse Resp B/P Pulse Ox O2 Delivery O2 Flow Rate FiO2 10/11/16 04:40 36.8 67 20 165/76 94 Room Air 10/07/16 13:48 2.00 Exam Gen.: Comfortable HEENT: NCAT Heart: Regular rate and rhythm no S3-S4 murmurs Lungs lung sounds are much improved, minimal wheezing Abdomen: Nontender nondistended, soft normal bowel sounds Extremities: Both extremities are wrapped in bandages only the last part of the toes are visible last dose is missing on the left side right side the whole foot is wrapped in dressings, DONALD drain is removed Neuro: No focal deficits Psychiatric negative for anxiety Test 10/05/16 10:16 10/05/16 20:45 10/06/16 00:20 10/07/16 04:52 Hemoglobin A1c 7.7% (4.8-5.6) Pro-B-Type Natriuretic Peptide 502.9pg/mL (0-376) Urine Color Straw (YELLOW) Urine Appearance Clear (CLEAR,HAZY) Urine pH 5.5 (5.0-8.0) Urine Specific [place] 1.010 (1.003-1.035) Urine Protein Tracemg/dL (NEG,TRACE) Urine Glucose (UA) Negativemg/dL (NEGATIVE) Urine Ketones Negativemg/dL (NEGATIVE) Urine Occult Blood Negative (NEGATIVE) Urine Nitrite Negative (NEGATIVE) Urine Bilirubin Negative (NEGATIVE) Urine Urobilinogen Normalmg/dL (NORMAL) Urine Leukocyte Esterase Negative (NEGATIVE) Urine RBC 0-2/hpf (0-2) Urine WBC 0-5/hpf (0-5) Urine Epithelial Cells Occasional/hpf (NONE-MOD) Urine Crystals None seen (NONE SEEN) Urine Bacteria None/hpf (NONE-FEW) Urine Hyaline Casts Rare/lpf (NONE) Urine Granular Casts None seen (NONE SEEN) Urine Waxy Casts None seen (NONE SEEN) Urine Red Blood Cell Casts None seen (NONE SEEN) Urine White Blood Cell Casts None seen (NONE SEEN) Urine Mucus None seen (None Seen) Urine Trichomonas None seen (NONE SEEN) Urine Yeast None (NONE SEEN) Urinalysis Comment None Urine Culture Reflexed Not indicated Urine Legionella pneumophilia Ag Negative (Negative) Hold Urine Received (Received) Test 10/10/16 06:15 10/11/16 08:00 Procalcitonin 0.12ng/mL (0.00-0.08) White Blood Count 13.2th/mm3 (3.8-10.1) Red Blood Count 3.46mil/mm3 (4.40-5.80) Hemoglobin 9.1g/dL (13.8-17.2) Hematocrit 28.9% (41.0-50.0) Mean Corpuscular Volume 83.5fL (81-100) Mean Corpuscular Hemoglobin 26.3pg (27.0-35.0) Mean Corpuscular Hemoglobin Concent 31.5% (32.0-37.0) Red Cell Distribution Width 15.9% (12.3-15.4) Platelet Count 272bil/L (150-400) Neutrophils (%) (Auto) 69.8% (40-74) Lymphocytes (%) (Auto) 17.4% (14-46) Monocytes (%) (Auto) 8.4% (4-12) Eosinophils (%) (Auto) 3.3% (0-5) Basophils (%) (Auto) 0.2% (0-3) Sodium Level 142mEq/L (134-144) Potassium Level 4.1mEq/L (3.5-5.2) Chloride Level 101mEq/L (97-108) Carbon Dioxide Level 27mmol/L (18-29) Blood Urea Nitrogen 27mg/dL (8-27) Creatinine 1.14mg/dL (0.76-1.27) Estimat Glomerular Filtration Rate 68mL/min (>59) Glucose Level 112mg/dL (60-99) Calcium Level 8.6mg/dL (8.5-10.1) Magnesium Level 1.9mg/dL (1.6-2.6) Total Bilirubin 0.3mg/dL (0.0-1.2) Aspartate Amino Transf (AST/SGOT) 16U/L (0-50) Alanine Aminotransferase (ALT/SGPT) 11U/L (0-44) Alkaline Phosphatase 65U/L (25-160) Total Protein 6.1g/dL (6.4-8.4) Albumin 3.1g/dL (3.4-5.0) Discharge Medications Discharge Medications Albuterol Neb Soln (Albuterol Neb Soln) 2.5 Mg/3 Ml Vial.neb 3 MG NEB Q4H ( Reported) Amlodipine (Amlodipine) 5 Mg Tablet 10 MG PO DAILY Prescribed by: VINOD SPENCER MD Aspirin (Aspirin) 81 Mg Tablet 81 MG PO DAILY (Reported) Atorvastatin Calcium (Atorvastatin Calcium) 10 Mg Tablet 10 MG PO HS Prescribed by: VINOD SPENCER MD Bupropion ER (Bupropion ER) 300 Mg Tab.er.24h 300 MG PO DAILY (Reported) Citalopram (Citalopram) 20 Mg Tablet 40 MG PO DAILY (Reported) Folic Acid/Multivit-Minerals (Centrum Flavor Burst Adult Chw) 100 Mcg Tab.chew 100 MCG PO DAILY (Reported) Furosemide (Furosemide) 40 Mg Tablet 40 MG PO DAILY (Reported) Hydralazine (Hydralazine) 50 Mg Tablet 100 MG PO TID Prescribed by: VINOD SPENCER MD Insulin Glargine (Lantus U100 Solostar Insulin Pen) 100 Unit/1 Ml Insuln.pen 15 UNIT SUBQ BID Prescribed by: VINOD SPENCER MD Insulin Human Lispro (HumaLOG U100 Insulin Vial) 100 Unit/Ml Unit 0 UNIT SUBQ WMHS Check blood sugars before meals and at bedtime. Use correction factor only before meals. Blood Sugar Lispro Correction: <151, 0 units; 151-175, 1 unit; 176-200, 2 units; 201-225, 3 units; 226-250, 4 units; 251-275, 5 units; 276-300 , 6 units; 301-325, 7 units; 326-350, 8 units; 351-375, 9 units; 376-400, 10 units; >400, 12 units. Prescribed by: VINOD SPENCER MD Metoprolol Tartrate (Metoprolol Tartrate) 50 Mg Tablet 50 MG PO BID (Reported) Morphine Sulfate ER (Morphine Sulfate ER) 10 Mg Capsule 15 MG PO BID Prescribed by: VINOD SPENCER MD Potassium Chloride ER (Potassium Chloride ER) 10 Meq Tablet 10 MEQ PO DAILY ( Reported) TAKE WITH FOOD Ranitidine (Ranitidine) 150 Mg Capsule 150 MG PO DAILY (Reported) Tiotropium [place] (Spiriva Respimat) 4 Gm Mist.inhal 4 GM IH HS (Reported) As needed Albuterol Sulfate (Ventolin HFA Inhaler) 200 Puff/18 Gm Inhaler 1 PUFF INH Q4 PRN PRN For Wheezing (Reported) Allopurinol (Allopurinol) 300 Mg Tablet 300 MG PO DAILY PRN PRN gout (Reported) Colchicine (Colchicine) 0.6 Mg Tablet 0.6 MG PO PRN Gout (Reported) Oxycodone (Roxicodone) 5 Mg Tablet 15 MG PO 6x day PRN PRN For Pain Prescribed by: VINOD SPENCER MD Followup Plan Disposition: SNF Follow-up plan Please follow-up with PCP 1 week after discharge from snf facility Discharge Diet: Diabetic Discharge Activity: Other (continue physical therapy at snf facility.) Patient Instructions You were hospitalized for elective foot surgery. You underwent reconstruction of left Charcot foot and lengthening of the Achilles tendon.You had suspected COPD exacerbation postoperatively treated with steroid and antibiotics. He had uncontrolled blood sugar partly due to steroid. I have lowered your home Lantus from 20 units twice a day to 15 units twice a day which seems better regimen. Please continue taking blood glucose 3 times a day and adjust accordingly. Completed antibiotics and steroid. Follow-up Provider: Colleen Doyle MD Follow-up with PCP in: 1 week Provider: Alejandro Merrill MD Follow-up in: 1 week Mid-level Provider: Ayush Chopra DPM Follow-up with Mid-level in: 1 week Time spent 35 minutes copies to: Ayush Chopra DPM; Colleen Doyle MD; Alejandro Merrill MD, Melaku MD October 11, 2016 12:10
[2016-10-11 12:42] VITALS: BP 145/71; PULSE 59; RESP 18; O2SAT 96
--- NOTE | 2016-10-11 12:50 | NUR ---
Faxed orders to [facility] and place copy in the chart. Patient will be picked up by [facility] at 1400. Updated BENCH WORKER and RN
--- NOTE | 2016-10-11 15:06 | NUR ---
Discharge To [facility] via [facility]. Report phoned to [facility]. All belongings sent with pt. IV discontinued intact.
== END 2016-10-11 15:00 | DRG 503 ==
LOC: SAS 09:05 → OSC 17:32
PROVIDERS: ADMIT Podiatrist; ATTEND Family Medicine
PROC: 0HN Skin and Breast, Release (ICD-10-PCS; 2016-10-05)
PROC: 4A033B1 Measurement of Arterial Pressure, Peripheral, Percutaneous Approach (ICD-10-PCS; 2016-10-05)
PROC: 0QBP0ZZ Excision of Left Metatarsal, Open Approach (ICD-10-PCS; principal; 2016-10-05 11:15)
PROC: 0SGN04Z Fusion of Left Metatarsal-Phalangeal Joint with Internal Fixation Device, Open Approach (ICD-10-PCS; 2016-10-05 11:15)
PROC: 0L8P0ZZ Division of Left Lower Leg Tendon, Open Approach (ICD-10-PCS; 2016-10-05 11:15)
PROC: 0HDMXZZ Extraction of Right Foot Skin, External Approach (ICD-10-PCS; 2016-10-07)
PROC: 0HDNXZZ Extraction of Left Foot Skin, External Approach (ICD-10-PCS; 2016-10-10)
PROC: 0HDMXZZ Extraction of Right Foot Skin, External Approach (ICD-10-PCS; 2016-10-10)
PROC: 2W3MX1Z Immobilization of Left Lower Extremity using Splint (ICD-10-PCS; 2016-10-10)
DX: M67.02 Short Achilles tendon (acquired), left ankle (principal); J18.9 Pneumonia, unspecified organism; J44.1 Chronic obstructive pulmonary disease with (acute) exacerbation; E11.610 Type 2 diabetes mellitus with diabetic neuropathic arthropathy; E11.621 Type 2 diabetes mellitus with foot ulcer; I71.4 Abdominal aortic aneurysm, without rupture; M10.9 Gout, unspecified; I10 Essential (primary) hypertension; J32.9 Chronic sinusitis, unspecified; M25.511 Pain in right shoulder; E11.65 Type 2 diabetes mellitus with hyperglycemia; E66.9 Obesity, unspecified; G89.29 Other chronic pain; I50.9 Heart failure, unspecified; Z79.4 Long term (current) use of insulin; Z89.422 Acquired absence of other left toe(s); Z89.421 Acquired absence of other right toe(s); Z79.51 Long term (current) use of inhaled steroids; Z79.82 Long term (current) use of aspirin; Z68.39 Body mass index [BMI] 39.0-39.9, adult

== ENCOUNTER 2016-11-20 17:40 | Inpatient (IN) | payer OTHER ==
[2016-11-20] VITALS (10 sets, daily range): BP systolic 169–222; BP diastolic 73–103; PULSE 59–101; RESP 17–22; O2SAT 93–96
[~2016-11-20] VITALS: Ht 188 cm; Wt 140.8 kg
[~2016-11-20 17:40] MED LIST changes: -CeFAZolin Inj 3 GM in IV Premix IV ONE; +INSLIS SUBQ; -INSU100I SUBQ; -SILD100T PO
--- NOTE | 2016-11-20 18:14 | ED.REPORT ---
HPI-General Illness Date of Service Nov 20, 2016 ED Provider: Alex Coelho DO Pt is a 66 year old male with a history of DM, COPD, CHF, hyperlipidemia, and HTN who presents to the ED complaining of elevated blood pressure. The pt was at wound care when it was determined that he had elevated blood pressure, prompting his visit to the ED today. The pt c/o associated increased leg swelling, leg pain, constant SOB (onset 1 week) and intermittent chest pain ( onset yesterday). He denies vomiting, diarrhea, and fever. Nursing Notes Stated Complaint: BLOOD PRESSURE Chief Complaint: General Complaint Nursing Notes Reviewed: Yes Allergies: Coded Allergies: TAPE (Verified Adverse Reaction, Severe, RASH, ITCHING, 10/04/16) vancomycin (Verified Adverse Reaction, Severe, Toxicity requiring dialysis , 11/20/16) Scheduled ([symbicort]) Unknown Dose INHALATION DAILY Allopurinol (Allopurinol) 300 Mg Tablet 300 MG PO DAILY Amlodipine (Amlodipine) 10 Mg Tablet 10 MG PO DAILY Aspirin (Aspirin) 81 Mg Tablet 81 MG PO DAILY Atorvastatin Calcium (Atorvastatin Calcium) 10 Mg Tablet 10 MG PO HS Bupropion ER (Bupropion ER) 300 Mg Tab.er.24h 300 MG PO DAILY Cholecalciferol (Vitamin D3) (Vitamin D) 5,000 Unit Capsule Unknown Dose PO unknown Citalopram (Citalopram) 40 Mg Tablet 40 MG PO DAILY Furosemide (Lasix) 40 Mg Tablet 40 MG PO DAILY Hydralazine (Hydralazine) 100 Mg Tablet 100 MG PO TID Insulin Glargine (Lantus U100 Insulin Vial) 100 Unit/Ml Vial 20 UNIT SUBQ BID Insulin Human Lispro (HumaLOG U100 Insulin Vial) 100 Unit/Ml Unit Unknown Dose SUBQ WMHS Check blood sugars before meals and at bedtime. Use correction factor only before meals. Blood Sugar Lispro Correction: <151, 0 units; 151-175, 1 unit; 176-200, 2 units; 201-225, 3 units; 226-250, 4 units; 251-275, 5 units; 276-300 , 6 units; 301-325, 7 units; 326-350, 8 units; 351-375, 9 units; 376-400, 10 units; >400, 12 units. Metoprolol Tartrate (Metoprolol Tartrate) 50 Mg Tablet 50 MG PO BID Morphine Sulfate ER (Morphine Sulfate ER) 15 Mg Tablet 15 MG PO BID Potassium Chloride ER (Potassium Chloride ER) 10 Meq Tablet 10 MEQ PO DAILY TAKE WITH FOOD Ranitidine (Ranitidine) 150 Mg Capsule 150 MG PO DAILY Tiotropium [place] (Spiriva Respimat) 4 Gm Mist.inhal 4 GM IH HS Scheduled PRN Albuterol Sulfate (Ventolin HFA Inhaler) 200 Puff/18 Gm Inhaler 1 PUFF INH Q4 PRN PRN For Wheezing Colchicine (Colchicine) 0.6 Mg Capsule 0.6 MG PO PRN gout Oxycodone (Roxicodone) 15 Mg Tablet 15 MG PO Q4H PRN PRN For Pain Miscellaneous Medications ([iron]) Unknown Dose General Time Seen by MD: 18:14 Chief Complaint Other (Elevated blood pressure) Hx Obtained From: Patient Arrived By: Walk-in Sudden in Onset?: No Onset Occurred: Just prior to arrival Symptom Duration: Duration unknown Location: : Chest Quality: Painful Severity: Current: No pain currently Severity: Maximum: Moderate Recent Healthcare: Recent doctor visit, Recent hospitalization Similar Sx Previous: Yes Past Medical History Past Medical History Hyperlipidemia PTSD Depression Reports: COPD, Congestive heart failure, Diabetes mellitus, Hypertension Past Surgical History L shoulder surgery Toe amputations Heart Catheter Left knee repairs Smoking History Unknown if Ever Smoker Social History Alcohol Use: Denies alcohol use Ambulatory Status Independent Review of Systems Full Review of Systems Constitutional: Denies: Fever Respiratory: Reports: Shortness of breath Cardiovascular: Reports: Chest pain GI: Denies: Diarrhea, Vomiting Skin: Reports Swelling Complete sys rev & neg: except as marked. Physical Exam Vital Signs Vital Signs Date Time Temp Pulse Resp B/P Pulse Ox O2 Delivery O2 Flow Rate FiO2 11/20/16 20:02 59 17 178/85 94 Room Air 11/20/16 19:11 61 19 175/73 93 Room Air 11/20/16 18:31 176/85 11/20/16 18:30 71 19 185/85 94 Room Air 11/20/16 17:51 36.9 61 22 222/103 96 Room Air Initial VS: Reviewed Head / Eyes: Atraumatic, Normocephalic, PERRL ENT: Mucous membranes moist, Conjunctiva normal, No scleral icterus Neck: Supple, Full range of motion Abdomen / GI: Soft, Non-tender Skin: Warm, Dry, No cyanosis Neurologic: Alert, Oriented, Nonfocal Psychiatric: Mood/affect normal, Behavior normal General/Constitutional: Awake, Alert, Cooperative Respiratory / Chest: Atraumatic Mild GVD. Pursed lip breathing. Diminished breath sounds. Crackles at the bases bilaterally. Cardiovascular: Heart rate NL, Regular rhythm, Heart sounds NL, No murmurs Lower Extremity / Pelvis / MS: Neurologic intact, Vascular intact Edema in both legs with erythema on left thigh Interpretation & Diagnostics CT VENOUS DUPLEX: IMPRESSION: No evidence of deep vein thrombosis involving the left lower extremity. Dictated by: Yanira Palma MD, PhD on 11/20/2016 at 20:10 Lab Results Interpretation Result Diagram: 11/20/16 1815 11/20/16 1815 Test 11/20/16 18:15 11/20/16 18:32 11/20/16 19:25 White Blood Count 9.8th/mm3 (3.8-10.1) Red Blood Count 4.22mil/mm3 (4.40-5.80) Hemoglobin 10.7g/dL (13.8-17.2) Hematocrit 35.0% (41.0-50.0) Mean Corpuscular Volume 82.9fL (81-100) Mean Corpuscular Hemoglobin 25.4pg (27.0-35.0) Mean Corpuscular Hemoglobin Concent 30.6% (32.0-37.0) Red Cell Distribution Width 15.2% (12.3-15.4) Platelet Count 285bil/L (150-400) Neutrophils (%) (Auto) 68.5% (40-74) Lymphocytes (%) (Auto) 17.4% (14-46) Monocytes (%) (Auto) 9.3% (4-12) Eosinophils (%) (Auto) 3.8% (0-5) Basophils (%) (Auto) 0.5% (0-3) Sodium Level 140mEq/L (134-144) Potassium Level 4.0mEq/L (3.5-5.2) Chloride Level 100mEq/L (97-108) Carbon Dioxide Level 25mmol/L (18-29) Blood Urea Nitrogen 23mg/dL (8-27) Creatinine 1.00mg/dL (0.76-1.27) Estimat Glomerular Filtration Rate 79mL/min (>59) Glucose Level 90mg/dL (60-99) Lactic Acid Level 0.9mmol/L (0.4-2.0) Calcium Level 9.4mg/dL (8.5-10.1) Magnesium Level 1.8mg/dL (1.6-2.6) Total Bilirubin 0.2mg/dL (0.0-1.2) Aspartate Amino Transf (AST/SGOT) 12U/L (0-50) Alanine Aminotransferase (ALT/SGPT) 11U/L (0-44) Alkaline Phosphatase 93U/L (25-160) Troponin T 0.042ug/L (0.0-0.011) Pro-B-Type Natriuretic Peptide 538.7pg/mL (0-376) Total Protein 7.5g/dL (6.4-8.4) Albumin 3.6g/dL (3.4-5.0) Lipase 32U/L (13-60) Procalcitonin 0.07ng/mL (0.00-0.08) Urine Color Yellow (YELLOW) Urine Appearance Clear (CLEAR,HAZY) Urine pH 5.5 (5.0-8.0) Urine Specific [place] 1.025 (1.003-1.035) Urine Protein >300mg/dL (NEG,TRACE) Urine Glucose (UA) 100mg/dL (NEGATIVE) Urine Ketones Negativemg/dL (NEGATIVE) Urine Occult Blood Trace (NEGATIVE) Urine Nitrite Negative (NEGATIVE) Urine Bilirubin Negative (NEGATIVE) Urine Urobilinogen Normalmg/dL (NORMAL) Urine Leukocyte Esterase Negative (NEGATIVE) Urine RBC 0-2/hpf (0-2) Urine WBC 0-5/hpf (0-5) Urine Epithelial Cells Occasional/hpf (NONE-MOD) Urine Crystals None seen (NONE SEEN) Urine Bacteria Few/hpf (NONE-FEW) Urine Hyaline Casts Occasional/lpf (NONE) Urine Granular Casts None seen (NONE SEEN) Urine Waxy Casts None seen (NONE SEEN) Urine Red Blood Cell Casts None seen (NONE SEEN) Urine White Blood Cell Casts None seen (NONE SEEN) Urine Mucus Present (None Seen) Urine Trichomonas None seen (NONE SEEN) Urine Yeast None (NONE SEEN) Urinalysis Comment None Urine Culture Reflexed Not indicated Hold Urine Received (Received) ECG Interpretation ECG Interpretation: Sinus rhythm with a rate of 62. Prolonged FL interval. Time: 18:26 Interpreted by: ED physician X-Ray Chest Interpretation Chest Xray Interpretation: IMPRESSION: CHF. Dictated by: Yanira Palma MD, PhD on 11/20/2016 at 19:03 View: Portable, 1 view Interpretation / Wet Read by: Interpret - Radiologist Re-Eval/Medical Decision Med Decision/Clinical Course Chest x-ray is worrisome for congestive heart failure. BNP is not that elevated. I think there is certainly a component of COPD so therefore he will be treated with duo nebs s and steroids. The elevated troponin is worrisome also. Oral aspirin and nitroglycerin given. Plan admit to PCU for further care and disposition. Source of Hx: Old records Time of Eval: 20:13 Re-Evaluation/Progress Note: Pt rechecked. Informed pt of plan for admit. Pt understands and agrees with plan for admit. All questions addressed. Consultation : Referral / Consult Name: Elan Olmstead MD Consulted With: Hospitalist Call Returned at: 20:14 Street Light Inspector: Will see patient, Agrees with eval, Agrees with plan, Accepts admit Counseled Regarding: Diagnosis, Lab results, Need for admission Discharge & Departure Primary Impression: Chest pain Chest pain type: unspecified Qualified Code: R07.9 - Chest pain, unspecified Additional Impressions: COPD (chronic obstructive pulmonary disease) COPD type: unspecified COPD Qualified Code: J44.9 - Chronic obstructive pulmonary disease, unspecified Elevated troponin Disposition: ADMITTED TO HOSPITAL Discharge Condition All VS Reviewed: Yes Condition: Stable Referrals: Colleen Doyle MD (PCP) Nicolas Attestation Portions of this note were transcribed by Mya Garland. I, Dr. Coelho personally performed the history, physical exam and medical decision-making; I reviewed and confirmed the accuracy of the information in the transcribed note. Signed by: Nicolas Mo, 11/20/16 and 20:15. copies to: Colleen Doyle MD, Todd P DO Nov 20, 2016 18:14 Mya Gonzalez Nov 20, 2016 18:27
[2016-11-20 18:39] LABS: BASOPHILS % (AUTO) 0.5 % (0-3); EOSINOPHILS % (AUTO) 3.8 % (0-5); MONOCYTES % (AUTO) 9.3 % (4-12); Mean Corpuscular Hemoglobin 25.4 pg (27.0-35.0); Mean Corpuscular Volume 82.9 fL (81-100); NEUTROPHILS % (AUTO) 68.5 % (40-74); Platelet Count 285 bil/L (150-400)
[2016-11-20 18:55] LABS: TROPONIN T 0.042 ug/L (0.0-0.011)
--- NOTE | 2016-11-20 19:06 | DRSVH ---
PROCEDURE: X-RAY CHEST ONE VIEW, PORTABLE ([id number]) INDICATIONS: dyspnea TECHNIQUE: One view of the chest was acquired. COMPARISON: [facility], CR, XR CHEST 2VW, 04/12/2016, 15:35. FINDINGS: Surgical changes and devices: None. Lungs and pleura: No pleural effusions or pneumothorax. Lungs are clear. Cephalization of pulmonary vasculature. Mediastinum: Mediastinal contours appear normal. Heart size is enlarged. Bones and chest wall: No suspicious bony lesions. Overlying soft tissues appear unremarkable. IMPRESSION: CHF. Dictated by: Yanira Palma MD, PhD on 11/20/2016 at 19:03 Approved by: Yanira Palma MD, PhD on 11/20/2016 at 19:04
[2016-11-20] MEDS ORDERED: Nitroglycerin 2% 1 Gm Ointment TOPICAL ONE (19:15)
[2016-11-20 19:20] LABS: Magnesium 1.8 mg/dL (1.6-2.6)
--- NOTE | 2016-11-20 20:13 | DRSVH ---
PROCEDURE: US VEINOUS LEG DUPLEX UNILATERAL, LEFT INDICATIONS: left leg swelling TECHNIQUE: Real-time imaging, as well as color and pulse Doppler interrogation, were performed of the lower extr emity deep veins from the inguinal ligament to the popliteal fossa. COMPARISON: None. FINDINGS: The deep veins are normally compressible, and free of intraluminal thrombus. Color and pu lse Doppler demonstrate normal phasic intraluminal flow. There is normal augmentation response to di stal compression maneuver. Incidental note made of a 5.7 x 8.7 x 2.3 cm popliteal cyst. IMPRESSION: No evidence of deep vein thrombosis involving the left lower extremity. Dictated by: Yanira Palma MD, PhD on 11/20/2016 at 20:10 Approved by: Yanira Palma MD, PhD on 11/20/2016 at 20:11
[2016-11-20] MEDS ORDERED: Ondansetron 2 mg/mL 2 mL Inj IVPUSH PRN (20:15)
[2016-11-20] MEDS ORDERED: Polyethylene Glycol (PEG) 17 Gm Powder PO PRN (20:15)
[2016-11-20] MEDS ORDERED: Alum-Mag Hydrox-Simeth 30 mL Suspension PO PRN (20:15)
[2016-11-20] MEDS ORDERED: Azithromycin Inj 500 MG in Dextrose 5% w/Vial Mate 250 ML IV SCH ×2 (20:20→21:30)
--- NOTE | 2016-11-20 20:28 | PCM.HPMED ---
Subjective Date of Service Nov 20, 2016 Primary Provider: Admitting Physician: Elan Olmstead MD Primary Care Physician: Colleen Doyle MD Attending Physician: Elan Olmstead MD Admit Status: From the Emergency Department, Full Admit, [facility] Telemetry Chief Complaint: Chest pain with uncontrolled Hypertension History of Present Illness: Osbaldo Gallagher is a 66 year old male with Diabetes type 2, COPD, Chronic congestive heart failure, hyperlipidemia, and Hypertension who presents to [facility] emergency department complaining of elevated blood pressure at Dr Chopra 's Office The pt was at wound care follow up with Dr Chopra when it was determined that he had elevated blood pressure, prompting his visit to the ED today. The patient reported some mid sternal chest discomfort and pressure, 2/10 intensity without any radiation. Associated symptoms includes increased leg swelling and dyspnea on exertion. He denies vomiting, diarrhea, chills and fever. Patient reports compliance with medications but admits he "loves" food and likes salt for seasoning on his steak. He is diabetic and have chronic wounds and left Charcot foot with improvement with wound care from Podiatry. Case discussed with Dr Coelho, BP rapidly improved with nitro paste. Neb treatment and steroids given. Elevated troponin and plans for admission Review of Systems: Pertinent positives as noted in HPI. All other systems were reviewed and are negative Allergies Coded Allergies: TAPE (Verified Adverse Reaction, Severe, RASH, ITCHING, 10/04/16) vancomycin (Verified Adverse Reaction, Severe, Toxicity requiring dialysis , 11/20/16) Home Medications From [facility], not yet confirmed Osbaldo Gallagher [id number] 1950 10/12/2016 05:23 AM 06/08 albuterol sulfate 2.5 mg/3 mL (0.083 %) solution for nebulization inhale 3 milliliter by nebulization route 3 times every day allopurinol 300 mg tablet take 1 tablet by oral route every day amlodipine 10 mg tablet take 1 tablet by oral route every day aspirin 81 mg chewable tablet chew 1 tablet by oral route every day atorvastatin 10 mg tablet take 1 tablet by oral route every day bupropion HCl XL 300 mg 24 hr tablet, extended release take 1 tablet by oral route every day citalopram 40 mg tablet take 1 tablet by oral route every day colchicine 0.6 mg capsule For gout flares take 2 tablets by mouth then one hour later take 1 tablet by mouth furosemide 40 mg tablet take 1 tablet by oral route every day gabapentin 100 mg capsule take 3 capsule by oral route 3 times every day Humalog 100 unit/mL subcutaneous solution Sliding scale insulin hydralazine 100 mg tablet take 1 tablet by oral route 3 times every day with food Lantus 100 unit/mL subcutaneous solution inject by subcutaneous route 20 units bid metoprolol tartrate 50 mg tablet take 1 tablet by oral route 2 times every day with meals morphine ER 15 mg tablet,extended release take 1 tablet by oral route every 12 hours multivitamin tablet oxycodone 15 mg tablet take 1 tablet by oral route every 6 hours Poly-Iron 150 mg iron capsule potassium chloride ER 10 mEq capsule,extended release take 1 capsule by oral route every day with food ranitidine 150 mg capsule take 1 capsule by oral route 2 times every day Spiriva with HandiHaler 18 mcg and inhalation capsules inhale 1 capsule by inhalation route every day using 2 inhalations via handihaler Stool Softener 50 mg capsule take 1 capsule by oral route every day at bedtime as needed Ventolin HFA 90 mcg/actuation aerosol inhaler inhale 2 puff by inhalation route every 4 - 6 hours as needed Vitamin D2 50,000 unit capsule take 1 capsule by oral route every week PMH Gout Coronary artery disease Diabetes type 2 with peripheral neuropathy Hypertension CHF of unknown type, AAA COPD Charcot foot Obesity . Surgical History Cardiac cath in October 2015 bilateral knee meniscal repair, amputations of right and left last toes Family History Father of smoking, heart disease Mother is 96 and alive and well Social History Hx Alcohol Use: No (HX ABUSE) Hx Substance Use: Yes Hx Tobacco Use: No Smoking Status: Never Smoker Living Arrangement: with Family Exam Vital Signs Vital Sign - Last Date Time Temp Pulse Resp B/P Pulse Ox O2 Delivery O2 Flow Rate FiO2 11/20/16 20:02 59 17 178/85 94 Room Air 11/20/16 17:51 36.9 Exam General: Alert, Oriented X3, Cooperative, No acute Distress talking in full words sentences Eyes: PERRLA, Scleral Anicteric Mouth: Mouth Normal, Mucous Membranes Moist/[place] Neck: Supple, no Thyromegaly, trachea central. Chest & Lungs: diffuse crackles and mild expiratory wheezing Cardiovascular: Normal S1, Normal S2, No Murmurs/Rubs/Gallops, Regular Rate/ Rhythm (No JVD, 1 + pitting peripheral edema) Pulses: Radial (present and equal), Dorsalis Pedi (present and equal) Abdomen: Soft, Non-tender, Non-distended, Normoactive bowel tones. Musculoskeletal: Unremarkable. Normal range of motion, no swollen or erythematous joints Extremities: 1 + bilateral pitting leg edema, no cyanosis, no clubbing. Skin: dressing and cast on left lower leg Neurological: Grossly neurologically intact, Normal Speech, Sensation Intact Lymphatic: Lymph nodes Cervical and Axillary not palpable. Lab and Diagnostics Labs Laboratory Tests Test 11/20/16 18:15 11/20/16 19:25 White Blood Count 9.8th/mm3 (3.8-10.1) Red Blood Count 4.22mil/mm3 (4.40-5.80) Hemoglobin 10.7g/dL (13.8-17.2) Hematocrit 35.0% (41.0-50.0) Mean Corpuscular Volume 82.9fL (81-100) Mean Corpuscular Hemoglobin 25.4pg (27.0-35.0) Mean Corpuscular Hemoglobin Concent 30.6% (32.0-37.0) Red Cell Distribution Width 15.2% (12.3-15.4) Platelet Count 285bil/L (150-400) Neutrophils (%) (Auto) 68.5% (40-74) Lymphocytes (%) (Auto) 17.4% (14-46) Monocytes (%) (Auto) 9.3% (4-12) Eosinophils (%) (Auto) 3.8% (0-5) Basophils (%) (Auto) 0.5% (0-3) Sodium Level 140mEq/L (134-144) Potassium Level 4.0mEq/L (3.5-5.2) Chloride Level 100mEq/L (97-108) Carbon Dioxide Level 25mmol/L (18-29) Blood Urea Nitrogen 23mg/dL (8-27) Creatinine 1.00mg/dL (0.76-1.27) Estimat Glomerular Filtration Rate 79mL/min (>59) Glucose Level 90mg/dL (60-99) Lactic Acid Level 0.9mmol/L (0.4-2.0) Calcium Level 9.4mg/dL (8.5-10.1) Magnesium Level 1.8mg/dL (1.6-2.6) Total Bilirubin 0.2mg/dL (0.0-1.2) Aspartate Amino Transf (AST/SGOT) 12U/L (0-50) Alanine Aminotransferase (ALT/SGPT) 11U/L (0-44) Alkaline Phosphatase 93U/L (25-160) Troponin T 0.042ug/L (0.0-0.011) Pro-B-Type Natriuretic Peptide 538.7pg/mL (0-376) Total Protein 7.5g/dL (6.4-8.4) Albumin 3.6g/dL (3.4-5.0) Lipase 32U/L (13-60) Hold Urine Received (Received) Result Diagram: 11/20/16181411/20/161814 X-Rays, CTs and MRIs X-RAY CHEST ONE VIEW, PORTABLE 11/20 IMPRESSION: CHF. Dictated by: Yanira Palma MD, PhD on 11/20/2016 at 19:03 Approved by: Yanira Palma MD, PhD on 11/20/2016 at 19:04 US VEINOUS LEG DUPLEX UNILATERAL, LEFT 11/20 IMPRESSION: No evidence of deep vein thrombosis involving the left lower extremity. Dictated by: Yanira Palma MD, PhD on 11/20/2016 at 20:10 Approved by: Yanira Palma MD, PhD on 11/20/2016 at 20:11 Assessment & Plan Osbaldo Gallagher is a 66 year old male with Diabetes type 2, COPD, Chronic congestive heart failure, hyperlipidemia, and Hypertension who presents to [facility] emergency department complaining of elevated blood pressure at Dr Chopra 's Office 1 Acute COPD exacerbation. Present on admission Likely triggered by a viral respiratory infection. NO clear signs of any pneumonia on Chest X ray. - continue oxygen supplementations - systemic steroids with Prednisone 40 mg daily, s/p Solu-Medrol 125 mg IV - continue DuoNeb scheduled treatments - Azithromycin IV, procalcitonin check - holding Spiriva as we are using DuoNeb - recommend Pulmonology follow up as outpatient 2 Acute on Chronic heart failure with preserved Ejection fraction. Present on admission Due to dietary indiscretion. Hypertensive heart disease with ventricular hypertrophy - diuretics Lasix 40 mg daily - monitor weight and fluids status daily and adjust diuretics - counselled on low salt diet 3 Uncontrolled Hypertension. Present on admission Due to dietary indiscretion and possible undiagnosed Sleep apnea - needs Sleep study as outpatient - continue hydralazine 100 mg tid, amlodipine 10 mg daily, Metoprolol 50 mg bid - consider adding Aldactone for better BP control 4 Elevated troponin. Present on admission Likely demand ischemia due to uncontrolled Hypertension. Risk factors for Non ST elevation Myocardial infarction. Cardiac cath (10/16/15) showed Focal 40% stenosis noted at the origin and proximal segment of the ramus intermedius with recommendations for medical therapy - trending troponin overnight - continue Aspirin for antiplatelet and secondary prevention - complete echo in the morning 5 Diabetes mellitus type II with peripheral neuropathy and associated chronic leg wounds - low correction Lispro algorithm - continue Gabapentin 300 mg tid - wound care consulted 6 Gout - continue Allopurinol 300 mg daily and PRN Colchicine 7 Chronic pain syndrome with narcotic dependence - continue outpatient regimen on Morphine 15 mg bid 8 Obesity BMI 39.9 Weight loss recommended as well as Sleep study 9 Depression, Chronic stable mood - continue Bupropion 300 mg daily and Citalopram 40 mg daily - Acetaminophen as needed for mild pain/fever/headache - Bowel regimen as needed - Antiemetic as needed Patient admitted under inpatient status with expected length of stay > 2 midnights for severity of present symptoms, complexities of treatment plan and risk for adverse event . Resuscitation Status: CPR: Attempt Resuscitation Elan Olmstead MD Nov 20, 2016 20:28 potassium chloride ER 10 mEq capsule,extended release take 1 capsule by oral route every day with food ranitidine 150 mg capsule take 1 capsule by oral route 2 times every day Spiriva with HandiHaler 18 mcg and inhalation capsules inhale 1 capsule by inhalation route every day using 2 inhalations via handihaler Resuscitation Status: CPR: Attempt Resuscitation Elan Olmstead MD Nov 20, 2016 20:28
[2016-11-20] MEDS ORDERED: Dextrose 10% 250 ML IV PRN (20:30)
[2016-11-20] MEDS ORDERED: Glucose 40% Oral Gel 15 Gm Tube PO PRN (20:30)
[2016-11-20] MEDS ORDERED: MethylprednisoLONE Sodium Succinate 62.5 mg/mL 2 mL Inj IVPUSH ONE (20:40)
[2016-11-20] MEDS ORDERED: FURO-128 PO (21:18)
[2016-11-20] MEDS ORDERED: METO50TA3 PO (21:18)
[2016-11-20] MEDS ORDERED: INSLIS SUBQ (21:18)
[2016-11-20] MEDS ORDERED: symbicort INHALATION (21:18)
[2016-11-20] MEDS ORDERED: INSU100V7 SUBQ (21:18)
[2016-11-20] MEDS ORDERED: BUPR300T52 PO (21:18)
[2016-11-20] MEDS ORDERED: CITA40TA13 PO (21:18)
[2016-11-20] MEDS ORDERED: MORP-32 PO (21:18)
[2016-11-20] MEDS ORDERED: OXYC15TA45 PO (21:18)
[2016-11-20] MEDS ORDERED: ASPI-973 PO (21:18)
[2016-11-20] MEDS ORDERED: ALLO300T2 PO (21:18)
[2016-11-20] MEDS ORDERED: TIOT4MIS2 IH (21:18)
[2016-11-20] MEDS ORDERED: AMLO10TA3 PO (21:18)
[2016-11-20] MEDS ORDERED: POTA10TA12 PO (21:18)
[2016-11-20] MEDS ORDERED: CHOL500051 PO (21:18)
[2016-11-20] MEDS ORDERED: RANI150C4 PO (21:18)
[2016-11-20] MEDS ORDERED: ATOR10TA66 PO (21:18)
[2016-11-20] MEDS ORDERED: HYDR100T27 PO (21:18)
[2016-11-20] MEDS ORDERED: ALBU18HF INH (21:18)
[2016-11-20] MEDS ORDERED: iron (21:18)
[2016-11-20] MEDS ORDERED: COLC0.6C3 PO (21:18)
[2016-11-20] MEDS: Azithromycin Inj 500 MG in Dextrose 5% w/Vial Mate 250 ML IV SCH (21:49)
[2016-11-20] MEDS: Insulin LISPRO 300 Unit/3 mL Inj SUBQ SCH (22:00)
[2016-11-20] MEDS: Albuterol-Ipratropium 3 mL Inhalation Solution NEB SCH (22:27)
[2016-11-20] MEDS ORDERED: Morphine ER 15 mg (MS Contin) Tablet PO SCH (22:34)
[2016-11-20 22:48] LABS: APPEARANCE,URINE CLEAR (CLEAR,HAZY); COLOR,URINE YELLOW (YELLOW); OCCULT BLOOD,URINE TRACE (NEGATIVE); PH,URINE 5.5 (5.0-8.0); UROBILINOGEN,URINE NORMAL (NORMAL)
[2016-11-20] MEDS: Furosemide 10 mg/mL 4 mL Inj IVPUSH SCH (23:13)
[2016-11-20] MEDS: Morphine ER 15 mg (MS Contin) Tablet PO SCH (23:13)
[2016-11-20] MEDS: Heparin 5,000 Unit/mL Inj SUBQ SCH (23:49)
[2016-11-21] VITALS (14 sets, daily range): BP systolic 158–178; BP diastolic 77–91; PULSE 60–75; RESP 14–22; O2SAT 92–98
[2016-11-21] MEDS: Albuterol-Ipratropium 3 mL Inhalation Solution NEB SCH ×5 (03:13→20:17)
--- NOTE | 2016-11-21 05:22 | NUR ---
Admit: Pt admitted to [facility] room 2000. Pt placed on Tele- showing SR sbrady 50-60s. Sp02 maintained on RA (placed on BROADCAST TRAFFIC COORDINATOR for high GODWIN score). MEd rec and health hx completed via pt interview. IV lasix given per MD order. pt voiding pale urine per urinal. Wound care consult ordered for bilateral LE, pt is a Wound care pt and just had bilateral dressing placed on 11/20 by WC. Pt resting comfortably in recliner, care ongoing.
[2016-11-21] MEDS: Furosemide 10 mg/mL 4 mL Inj IVPUSH SCH (07:43)
[2016-11-21] MEDS: predniSONE 20 mg Tablet PO SCH (07:44)
[2016-11-21] MEDS: Morphine ER 15 mg (MS Contin) Tablet PO SCH ×2 (07:44→19:28)
[2016-11-21] MEDS: Heparin 5,000 Unit/mL Inj SUBQ SCH ×2 (07:45→17:02)
[2016-11-21] MEDS: Insulin LISPRO 300 Unit/3 mL Inj SUBQ SCH ×5 (07:45→20:53)
[2016-11-21] MEDS: buPROPion XL 300 mg ER24 Tablet PO SCH (08:40)
[2016-11-21] MEDS: Insulin GLARgine 100 Unit/mL Syringe SUBQ SCH ×2 (08:41→20:39)
--- NOTE | 2016-11-21 10:10 | DRSVH ---
[facility] [address] [place] [address] Echocardiogram Report Name: JR RAPP MStudy Date: 11/21/2016 Height: 74 in Hospital Exam Location: [facility] Weight: 310 lb Gender: Other BSA: 2.6 m2 : 1950 Age: 66 yrs BP: 169/89 mmHg Reason For Study: SHORTNESS OF BREATH Ordering Physician: SONNY GORE Performed By: Catarino Silva Referring Physician: Wilberto ELIZALDE Interpretation Summary The left ventricle is mildly dilated. The ejection fraction is estimated to be 65-70%. There has been no significant change in LV EF since the previous study. The right ventricle is mildly dilated. The right ventricular systolic function is normal. No significant valvular pathology seen. The ascending aorta is mildly enlarged. This is unchanged compared to the previous study. The IVC is dilated (diameter is greater than 2.1 cm) and it collapses less than 50% with a sniff. This suggests a high right atrial pressure of 15 mm Hg (Right atrial pressure increased from about 8 mmHg to 15 mmHg). Procedure: A two-dimensional transthoracic echocardiogram with color flow and Doppler was performed. The study quality was technically difficult. Comparison is made with the echocardiogram of 12/19/15. The patient was in normal sinus rhythm during the exam. Left Ventricle: The left ventricle is mildly dilated. Left ventricular wall thickness is mildly increased. There is no thrombus. The ejection fraction is estimated to be 65-70%. There has been no significant change since the previous study. There are no focal wall motion abnormalities. Spectral Doppler of the mitral valve is reversed, with an E/A wave ratio < 1.0. Right Ventricle: The right ventricle is mildly dilated. The right ventricular systolic function is normal. Atria: The left atrium is severely dilated. The left atrium has mildly increased in size since the prior echo exam. Right atrial size is normal. The interatrial septum is intact with no evidence for an atrial septal defect. Mitral Valve: There is mild mitral annular calcification. The mitral valve leaflets are slightly calcified. The mitral valve chordae are thickened and/or calcified. There is trace mitral regurgitation. Aortic Valve: The aortic valve is trileaflet. There is discrete nodular thickening of the left coronary cusp. The aortic valve is mildly calcified. The aortic valve opens well. There is no hemodynamically significant valvular aortic stenosis. There is trace aortic regurgitation. Tricuspid Valve: The tricuspid valve is normal in structure and function. Pulmonary artery pressures cannot be estimated because of the lack of a measurable TR jet velocity. There is trace tricuspid regurgitation. Pulmonic Valve: The pulmonic valve is not well seen, but is grossly normal. There is no pulmonic valvular regurgitation. Great Vessels: The aortic root is normal size. The ascending aorta is mildly enlarged. This is unchanged compared to the previous study. The pulmonary artery is normal size. The IVC is dilated (diameter is greater than 2.1 cm) and it collapses less than 50% with a sniff. This suggests a high right atrial pressure of 15 mm Hg. Pericardium/ Pleura There is no pericardial effusion. There is no pleural effusion. MMode/2D Measurements & Calculations LVIDd: 6.2 cm LA dimension: 4.8 cm RA long axis LVOT diam LVIDs: 4.0 cm FS: 36.4 % LA A2 area: 33.2 cm RA area Ao root diam EPSS: 0.62 cm LA A4 area: 29.2 cm IVSd: 1.2 cm LA length (vol): 6.4 cm : 23.5 cm Aortic Jxn LVPWd: 1.2 cm LA vol: 129.3 ml RA vol: 77.5 ml LA vol index RA asc Aorta : 29.6 mm2 Diam: 3.8 cm IVC diam: 3.3 cm LV garcia. diameter/BSA LV sys. diameter/BSA RVD1 (basal) RVD2 (mid) (cm/m^2): 2.4 (cm/m^2): 1.5 : 4.6 cm Doppler Measurements & Calculations Ao V2 max MV E max felton MV E/A: 0.91 PA V2 max : 232.2 cm/sec : 77.4 cm/sec Med Peak E' Felton : 105.3 cm/sec Ao max P.6 mmHg MV A max felton PA mean PG Ao mean P.0 mmH.3 cm/sec E/E' med: 11.6 LVOT Max Felton Lat Peak E' Felton PA Accel Time : 114.8 cm/sec : 0.11 sec E/E' lat: 10.6 JOANNE(I,D): 2.0 cm E/e' average sev ratio: 0.51 Pulm A Revs Dur MV A dur : 0.15 sec MV dec time: 0.17 secAo V2 mean LV V1 max PG PA V2 mean : 179.8 cm/sec : 79.0 cm/sec Ao V2 VTI: 50.8 cm LV V1 VTI PA pr(Accel) : 25.9 cm : 24.2 mmHg JOANNE(V,D): 2.0 cm2 JOANNE indexed to BSA Pulm Carolann Revs Dur - MV A (cm^2/m^2): 0.77 Dur: -0.05 msec Reading Physician:MELISSA
--- NOTE | 2016-11-21 12:18 | PCM.PNMED ---
Subjective Date of Service Nov 21, 2016 Subjective His breathing is about 50% improved. No chest pain. No rhinorrhea. He has sore throat week ago but this is gone. He denies any orthopnea. He does have a fair amount of edema in his legs but this is improving. No dyspepsia or abdominal pain. Eating very well with his diuretics. Exam Vital Signs Vital Sign - Last Date Time Temp Pulse Resp B/P Pulse Ox O2 Delivery O2 Flow Rate FiO2 11/21/16 10:11 74 11/21/16 10:07 20 97 Room Air 11/21/16 08:46 36.5 178/91 11/21/16 04:40 3.00 Intake and Output 11/20/16 11/20/16 11/21/16 Cumulative From/Thru 15:00 23:00 07:00 11/20/16 17:51 - 11/21/16 06:19 Intake Total 400 ml 400 ml Output Total 1750 ml 1750 ml Balance -1350 ml -1350 ml Intake Oral 400 ml 400 ml Output Urine Total 1750 ml 1750 ml Exam Alert and oriented -3, no distress. Fluent speech Anicteric sclera. Lungs are clear with normal rate and effort, decreased breath sounds globally. Heart is regular without murmur gallop or rub Abdomen soft nontender, distended. Extremities Charcot foot bilaterally. His left leg is in a short leg splint. He does have edema above the top of the splint. His right lower extremity is also wrapped and does have edema below the knee. Skin is free of rash or lesions. IVs and Medications Medications Reviewed: Medications were reviewed in detail Lab and Diagnostics Result Diagram: 11/20/16 1815 11/21/16 0230 X-Rays, CTs and MRIs X-RAY CHEST ONE VIEW, PORTABLE 11/20 IMPRESSION: CHF. Dictated by: Yanira Palma MD, PhD on 11/20/2016 at 19:03 Approved by: Yanira Palma MD, PhD on 11/20/2016 at 19:04 US VEINOUS LEG DUPLEX UNILATERAL, LEFT 11/20 IMPRESSION: No evidence of deep vein thrombosis involving the left lower extremity. Dictated by: Yanira Palma MD, PhD on 11/20/2016 at 20:10 Approved by: aYnira Palma MD, PhD on 11/20/2016 at 20:11 Assessment & Plan Osbaldo Gallagher is a 66 year old male with Diabetes type 2, COPD, Chronic congestive heart failure, hyperlipidemia, and Hypertension who presents to [facility] emergency department complaining of elevated blood pressure at Dr Chopra 's Office 1 Acute COPD exacerbation. Present on admission and improving Likely triggered by a viral respiratory infection. NO clear signs of any pneumonia on Chest X ray. - continue oxygen supplementations - systemic steroids with Prednisone 40 mg daily, s/p Solu-Medrol 125 mg IV - continue DuoNeb scheduled treatments - Azithromycin IV, procalcitonin check - holding Spiriva as we are using DuoNeb - recommend Pulmonology follow up as outpatient 2 Acute on Chronic heart failure with preserved Ejection fraction. Present on admission and improving Due to dietary indiscretion. Hypertensive heart disease with ventricular hypertrophy - diuretics Lasix 40 mg daily - monitor weight and fluids status daily and adjust diuretics - counselled on low salt diet 3 Uncontrolled Hypertension. Present on admission and improved Due to dietary indiscretion and possible undiagnosed Sleep apnea 4 Elevated troponin. Present on admission and improving. Likely demand ischemia due to uncontrolled Hypertension. Risk factors for Non ST elevation Myocardial infarction. Cardiac cath (10/16/15) showed Focal 40% stenosis noted at the origin and proximal segment of the ramus intermedius with recommendations for medical therapy - trending troponin overnight - continue Aspirin for antiplatelet and secondary prevention - complete echo in the morning, results pending. 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 - low correction Lispro algorithm - continue Gabapentin 300 mg tid - wound care consulted Will add lispro 10 units before meals nutritional dose in addition to correctional 6 Gout, POA and stable - continue Allopurinol 300 mg daily and PRN Colchicine 7 Chronic pain syndrome with narcotic dependence, POA and stable - continue outpatient regimen on Morphine 15 mg bid 8 Obesity BMI 39.9, POA and stable Weight loss recommended as well as Sleep study 9 Depression, Chronic stable mood - continue Bupropion 300 mg daily and Citalopram 40 mg daily - Acetaminophen as needed for mild pain/fever/headache - Bowel regimen as needed - Antiemetic as needed Patient admitted under inpatient status with expected length of stay > 2 midnights for severity of present symptoms, complexities of treatment plan and risk for adverse event . Resuscitation Status: CPR: Attempt Resuscitation Ford Ghosh MD Nov 21, 2016 12:18
--- NOTE | 2016-11-21 13:45 | NUR ---
Social work note - Initial Assessment Osbaldo Gallagher is a 66 yr old who was admitted for Chest Pain - COPD. EMR reviewed: pt has [employer] [facility]. His PCP is Dr Panda at [facility]. Readmit score is high - 5. Pt does not have DPOA - RECREATIONAL DIRECTOR provided paperwork. Pt does not have correction care insurance. See attached CM initial assessment. RECREATIONAL DIRECTOR met with pt - introduced D/C planning and explained SW role. Pt lives at home with his in [place]. He is WC bound at base due to bilateral foot injuries. He has an electric scooter. He has a ramp to access his house. Pt was recently d/c from [facility] where he received PT and he feels he can go home with his at d/c. He is open with [facility] for RN PT OT. He would like them to continue. RECREATIONAL DIRECTOR called [facility] - Spoke with June and provided access to [facility]. Pt has applied for [facility] - hoping for home caregivers but states his copay amount is too high. He thinks his filled out the paperwork wrong. Pt asked RECREATIONAL DIRECTOR to speak to Daisy about discrepancies. RECREATIONAL DIRECTOR left a message. Assessment: Pt who would benefit from continued Home Health. Plan: Home with and RESUME [facility] RN PT OT. Lisa Wadsworth DAMPER MAKER Addendum: 11/21/16 at 1353 by LISA WADSWORTH SS Amended: Links added.
[2016-11-21] MEDS ORDERED: Insulin GLARgine 100 Unit/mL Syringe SUBQ ONE (14:20)
--- NOTE | 2016-11-21 17:22 | NUR ---
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 Patient was seen in the clinic 11/20 then sent to ER for significant hypertension, dressings and cast are intact, next dressing change would be scheduled to be performed by home health on 11/23, will change dressings then if patient is still in house.
--- NOTE | 2016-11-21 17:43 | NUR ---
BS in 300's this shift, one time orders for lispro and lantus given per MD order. Roxicodone 15 mg given q3 hrs for chronic back and LE pain. LE dressings in place, no direct wound observation. LE edema. Sinus 50's-60's with first degree block. SL in R AC patent, no s/s phlebitis or infiltration. BP elevated this shift, MD aware.
[2016-11-21] MEDS: Azithromycin Inj 500 MG in Dextrose 5% w/Vial Mate 250 ML IV SCH (20:37)
[2016-11-22] MEDS: Albuterol-Ipratropium 3 mL Inhalation Solution NEB SCH ×4 (00:30→12:30)
[2016-11-22] MEDS: Heparin 5,000 Unit/mL Inj SUBQ SCH ×2 (00:32→07:47)
[2016-11-22 04:42] VITALS: BP 170/89; PULSE 64; RESP 22; O2SAT 96
[2016-11-22 04:45] VITALS: PULSE 77; RESP 20; O2SAT 96
[2016-11-22 05:10] VITALS: PULSE 74
--- NOTE | 2016-11-22 05:45 | NUR ---
Blood Glucose: Blood Glucose in the 330s at HS. per s/s pt only to get 3 units Lispro. per pt he would take 20U Lispro for BG that high. Pt requesting additional insulin. Dr. Davis contacted. Order received to give pt 20 units lispro and to change s/s to high dose. Lispro given in addition to scheduled lantus. BG recheck at midnight- still in the 330s. It was noted that pt did eat a large cheeseburger after he was given HS insulin. recheck at 4am BG 270s.
[2016-11-22] MEDS: Furosemide 10 mg/mL 4 mL Inj IVPUSH SCH (07:48)
[2016-11-22] MEDS: predniSONE 20 mg Tablet PO SCH (07:48)
[2016-11-22] MEDS: buPROPion XL 300 mg ER24 Tablet PO SCH (07:48)
[2016-11-22] MEDS: Insulin GLARgine 100 Unit/mL Syringe SUBQ SCH (07:48)
[2016-11-22] MEDS: Morphine ER 15 mg (MS Contin) Tablet PO SCH (07:49)
[2016-11-22] MEDS: Insulin LISPRO 300 Unit/3 mL Inj SUBQ SCH ×4 (07:50→12:56)
[2016-11-22 08:10] VITALS: PULSE 56; RESP 18; O2SAT 98
[2016-11-22 08:50] VITALS: BP 164/87; PULSE 59; RESP 16; O2SAT 95
[2016-11-22 09:01] VITALS: PULSE 64
--- NOTE | 2016-11-22 10:32 | NUR ---
Social Work: Discharge Data: Pt is on day 2 of hospitalization. EMR reviewed. D/C orders are in. GLASS PROCESSING WORKER called [facility] to notify that pt will d/c today. Faxed d/c orders and updated clinicals to Maria E at [phone]. No further d/c planning needs a this time. GLASS PROCESSING WORKER will continue to follow if needs arise. Assessment: Pt with [facility]. Plan: Pt will d/c home via POV today with resume [facility] for RN/PT/OT with [facility]. No further d/c planning needs a this time. GLASS PROCESSING WORKER will continue to follow if needs arise. ARLENE Cronin
--- NOTE | 2016-11-22 10:33 | PCM.DIMED ---
Discharge Instructions Date of Service Nov 22, 2016 Dates of Hospitalization Nov 20, 2016 at 20:17 Discharge Diagnosis Discharge Diagnosis 1 Acute COPD exacerbation. Improved 2 Acute on Chronic heart failure with preserved Ejection fraction. Improved 3 Uncontrolled Hypertension. Improved 4 Elevated troponin. Improved 5 Diabetes mellitus type II with peripheral neuropathy and associated chronic leg wounds, stable 6 Gout, stable 7 Chronic pain syndrome with narcotic dependence, stable 8 Obesity BMI 39.9, stable 9 Depression, stable Diet Discharge Diet: Low fat, Low Sodium, Diabetic Activity Discharge Activity: Limited until seen by PCP Call your provider Call your provider for: Fever or Chills, Shortness of breath, Chest pain Patient Instructions Patient Instructions [facility] Follow-up with PCP in: 1 week Ford Ghosh MD Nov 22, 2016 10:33
[2016-11-22] MEDS ORDERED: AZIT500T5 PO (10:36)
[2016-11-22] MEDS ORDERED: FURO-128 PO (10:36)
[2016-11-22] MEDS ORDERED: METO100T3 PO (10:36)
[2016-11-22] MEDS ORDERED: PRE20 PO (10:36)
--- NOTE | 2016-11-22 12:57 | NUR ---
At 1515 pt left facility via WC accompanied by FILTER CHANGING TECHNICIAN and spouse to private car en route to home. Discharge instructions given, including [facility], when to take next medications, and informational handouts on DC dx and new meds. All questions answered and pt and spouse communicated understanding. Insulin administered and pt ate lunch prior to leaving facility.
--- NOTE | 2016-11-28 08:28 | PCM.DC.MED ---
Discharge Summary Date of Service Nov 22, 2016 Dates of Hospitalization Date of Hospital Admission Nov 20, 2016 at 20:17 Date of Discharge: Nov 22, 2016 Providers: Admitting Physician: Elan Olmstead MD Primary Care Physician: Colleen Doyle MD Attending Physician: Elan Olmstead MD Diagnosis at Time of Discharge Diagnosis at Time of Discharge 1 Acute COPD exacerbation. Improved 2 Acute on Chronic heart failure with preserved Ejection fraction. Improved 3 Uncontrolled Hypertension. Improved 4 Elevated troponin. 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 Dictated by: Yanira Palma MD, PhD on 11/20/2016 at 19:03 Approved by: Yanira Palma MD, PhD on 11/20/2016 at 19:04 US VEINOUS LEG DUPLEX UNILATERAL, LEFT 11/20 IMPRESSION: No evidence of deep vein thrombosis involving the left lower extremity. Dictated by: Yanira Palma MD, PhD on 11/20/2016 at 20:10 Approved by: Yanira Palma MD, PhD on 11/20/2016 at 20:11 Cardiac Echo Impression Name: JR RAPP MStudy Date: 11/21/2016 Height: 74 in Hospital Exam Location: [facility] Weight: 310 lb Gender: Other BSA: 2.6 m2 : 1950 Age: 66 yrs BP: 169/89 mmHg Reason For Study: SHORTNESS OF BREATH Ordering Physician: SONNY GORE Performed By: Catarino Silva Referring Physician: Wilberto DOYLE Interpretation Summary The left ventricle is mildly dilated. The ejection fraction is estimated to be 65-70%. There has been no significant change in LV EF since the previous study. The right ventricle is mildly dilated. The right ventricular systolic function is normal. No significant valvular pathology seen. The ascending aorta is mildly enlarged. This is unchanged compared to the previous study. The IVC is dilated (diameter is greater than 2.1 cm) and it collapses less than 50% with a sniff. This suggests a high right atrial pressure of 15 mm Hg (Right atrial pressure increased from about 8 mmHg to 15 mmHg). Brief History Jr Rapp is a 66 year old male with Diabetes type 2, COPD, Chronic congestive heart failure, hyperlipidemia, and Hypertension who presents to [facility] emergency department complaining of elevated blood pressure at Dr Chopra 's Office The pt was at wound care follow up with Dr Chopra when it was determined that he had elevated blood pressure, prompting his visit to the ED today. The patient reported some mid sternal chest discomfort and pressure, 2/10 intensity without any radiation. Associated symptoms includes increased leg swelling and dyspnea on exertion. He denies vomiting, diarrhea, chills and fever. Patient reports compliance with medications but admits he "loves" food and likes salt for seasoning on his steak. He is diabetic and have chronic wounds and left Charcot foot with improvement with wound care from Podiatry. Case discussed with Dr Coelho, BP rapidly improved with nitro paste. Neb treatment and steroids given. Elevated troponin and plans for admission Hospital Course Jr Rapp is a 66 year old male with Diabetes type 2, COPD, Chronic congestive heart failure, hyperlipidemia, and Hypertension who presents to [facility] emergency department complaining of elevated blood pressure at Dr Chopra 's Office 1 Acute COPD exacerbation. Present on admission and improving Likely triggered by a viral respiratory infection. NO clear signs of any pneumonia on Chest X ray. - continue oxygen supplementations - systemic steroids with Prednisone 40 mg daily, s/p Solu-Medrol 125 mg IV - continue DuoNeb scheduled treatments - Azithromycin IV, procalcitonin check - holding Spiriva as we are using DuoNeb - recommend Pulmonology follow up as outpatient This improved his standard treatment of COPD. He was feeling much better and felt to be stable for discharge. 2 Acute on Chronic heart failure with preserved Ejection fraction. Present on admission and improving Due to dietary indiscretion. Hypertensive heart disease with ventricular hypertrophy - diuretics Lasix 40 mg daily - monitor weight and fluids status daily and adjust diuretics - counselled on low salt diet He improved with mild diuresis. 3 Uncontrolled Hypertension. Present on admission and improved Due to dietary indiscretion and possible undiagnosed Sleep apnea He improved with treatment of exacerbation of COPD and failure. 4 Elevated troponin. Present on admission and improving. Likely demand ischemia due to uncontrolled Hypertension. Risk factors for Non ST elevation Myocardial infarction. Cardiac cath (10/16/15) showed Focal 40% stenosis noted at the origin and proximal segment of the ramus intermedius with recommendations for medical therapy - trending troponin overnight - continue Aspirin for antiplatelet and secondary prevention - complete echo in the morning, results pending. Echo was unremarkable. No further workup ensued. 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 - low correction Lispro algorithm - continue Gabapentin 300 mg tid - wound care consulted Will add lispro 10 units before meals nutritional dose in addition to correctional 6 Gout, POA and stable - continue Allopurinol 300 mg daily and PRN Colchicine 7 Chronic pain syndrome with narcotic dependence, POA and stable - continue outpatient regimen on Morphine 15 mg bid 8 Obesity BMI 39.9, POA and stable Weight loss recommended as well as Sleep study 9 Depression, Chronic stable mood - continue Bupropion 300 mg daily and Citalopram 40 mg daily Patient admitted under inpatient status and was felt to be stable for discharge on the day of discharge. . Exam Vital Signs (Last) Date Time Temp Pulse Resp B/P Pulse Ox O2 Delivery O2 Flow Rate FiO2 11/22/16 09:01 64 11/22/16 08:50 36.6 16 164/87 95 Room Air Exam The patient was seen and examined on the day of discharge. Test 11/20/16 18:15 11/20/16 18:32 11/20/16 19:25 11/21/16 02:30 White Blood Count 9.8th/mm3 (3.8-10.1) Red Blood Count 4.22mil/mm3 (4.40-5.80) Hemoglobin 10.7g/dL (13.8-17.2) Hematocrit 35.0% (41.0-50.0) Mean Corpuscular Volume 82.9fL (81-100) Mean Corpuscular Hemoglobin 25.4pg (27.0-35.0) Mean Corpuscular Hemoglobin Concent 30.6% (32.0-37.0) Red Cell Distribution Width 15.2% (12.3-15.4) Platelet Count 285bil/L (150-400) Neutrophils (%) (Auto) 68.5% (40-74) Lymphocytes (%) (Auto) 17.4% (14-46) Monocytes (%) (Auto) 9.3% (4-12) Eosinophils (%) (Auto) 3.8% (0-5) Basophils (%) (Auto) 0.5% (0-3) Hemoglobin A1c 7.6% (4.8-5.6) Lactic Acid Level 0.9mmol/L (0.4-2.0) Magnesium Level 1.8mg/dL (1.6-2.6) Total Bilirubin 0.2mg/dL (0.0-1.2) Aspartate Amino Transf (AST/SGOT) 12U/L (0-50) Alanine Aminotransferase (ALT/SGPT) 11U/L (0-44) Alkaline Phosphatase 93U/L (25-160) Pro-B-Type Natriuretic Peptide 538.7pg/mL (0-376) Total Protein 7.5g/dL (6.4-8.4) Albumin 3.6g/dL (3.4-5.0) Lipase 32U/L (13-60) Procalcitonin 0.07ng/mL (0.00-0.08) Urine Color Yellow (YELLOW) Urine Appearance Clear (CLEAR,HAZY) Urine pH 5.5 (5.0-8.0) Urine Specific [place] 1.025 (1.003-1.035) Urine Protein >300mg/dL (NEG,TRACE) Urine Glucose (UA) 100mg/dL (NEGATIVE) Urine Ketones Negativemg/dL (NEGATIVE) Urine Occult Blood Trace (NEGATIVE) Urine Nitrite Negative (NEGATIVE) Urine Bilirubin Negative (NEGATIVE) Urine Urobilinogen Normalmg/dL (NORMAL) Urine Leukocyte Esterase Negative (NEGATIVE) Urine RBC 0-2/hpf (0-2) Urine WBC 0-5/hpf (0-5) Urine Epithelial Cells Occasional/hpf (NONE-MOD) Urine Crystals None seen (NONE SEEN) Urine Bacteria Few/hpf (NONE-FEW) Urine Hyaline Casts Occasional/lpf (NONE) Urine Granular Casts None seen (NONE SEEN) Urine Waxy Casts None seen (NONE SEEN) Urine Red Blood Cell Casts None seen (NONE SEEN) Urine White Blood Cell Casts None seen (NONE SEEN) Urine Mucus Present (None Seen) Urine Trichomonas None seen (NONE SEEN) Urine Yeast None (NONE SEEN) Urinalysis Comment None Urine Culture Reflexed Not indicated Hold Urine Received (Received) Sodium Level 138mEq/L (134-144) Potassium Level 4.5mEq/L (3.5-5.2) Chloride Level 99mEq/L (97-108) Carbon Dioxide Level 25mmol/L (18-29) Blood Urea Nitrogen 27mg/dL (8-27) Creatinine 1.03mg/dL (0.76-1.27) Estimat Glomerular Filtration Rate 77mL/min (>59) Glucose Level 274mg/dL (60-99) Calcium Level 9.2mg/dL (8.5-10.1) Test 11/21/16 17:31 Troponin T 0.023ug/L (0.0-0.011) Discharge Medications Discharge Medications ([symbicort]) Unknown Dose INHALATION DAILY (Reported) Allopurinol (Allopurinol) 300 Mg Tablet 300 MG PO DAILY (Reported) Amlodipine (Amlodipine) 10 Mg Tablet 10 MG PO DAILY (Reported) Aspirin (Aspirin) 81 Mg Tablet 81 MG PO DAILY (Reported) Atorvastatin Calcium (Atorvastatin Calcium) 10 Mg Tablet 10 MG PO HS (Reported) Azithromycin (Azithromycin) 500 Mg Tablet 250 MG PO DAILY Prescribed by: FORD KEITH MD Bupropion ER (Bupropion ER) 300 Mg Tab.er.24h 300 MG PO DAILY (Reported) Cholecalciferol (Vitamin D3) (Vitamin D) 5,000 Unit Capsule Unknown Dose PO unknown (Reported) Citalopram (Citalopram) 40 Mg Tablet 40 MG PO DAILY (Reported) Furosemide (Lasix) 40 Mg Tablet 40 MG PO BID Prescribed by: FORD KEITH MD Hydralazine (Hydralazine) 100 Mg Tablet 100 MG PO TID (Reported) Insulin Glargine (Lantus U100 Insulin Vial) 100 Unit/Ml Vial 20 UNIT SUBQ BID ( Reported) Insulin Human Lispro (HumaLOG U100 Insulin Vial) 100 Unit/Ml Unit Unknown Dose SUBQ WMHS (Reported) Check blood sugars before meals and at bedtime. Use correction factor only before meals. Blood Sugar Lispro Correction: <151, 0 units; 151-175, 1 unit; 176-200, 2 units; 201-225, 3 units; 226-250, 4 units; 251-275, 5 units; 276-300 , 6 units; 301-325, 7 units; 326-350, 8 units; 351-375, 9 units; 376-400, 10 units; >400, 12 units. Metoprolol Tartrate (Metoprolol Tartrate) 100 Mg Tablet 100 MG PO BID Prescribed by: FORD KEITH MD Morphine Sulfate ER (Morphine Sulfate ER) 15 Mg Tablet 15 MG PO BID (Reported) Potassium Chloride ER (Potassium Chloride ER) 10 Meq Tablet 10 MEQ PO DAILY ( Reported) TAKE WITH FOOD Prednisone (PredniSONE) 20 Mg Tablet 40 MG PO DAILY Prescribed by: FORD KEITH MD Ranitidine (Ranitidine) 150 Mg Capsule 150 MG PO DAILY (Reported) Tiotropium [place] (Spiriva Respimat) 4 Gm Mist.inhal 4 GM IH HS (Reported) As needed Albuterol Sulfate (Ventolin HFA Inhaler) 200 Puff/18 Gm Inhaler 1 PUFF INH Q4 PRN PRN For Wheezing (Reported) Colchicine (Colchicine) 0.6 Mg Capsule 0.6 MG PO PRN gout (Reported) Oxycodone (Roxicodone) 15 Mg Tablet 15 MG PO Q4H PRN PRN For Pain (Reported) Miscellaneous Medications ([iron]) Unknown Dose (Reported) Followup Plan Disposition: Home Discharge Diet: Low fat, Low Sodium, Diabetic Discharge Activity: Limited until seen by PCP Patient Instructions [facility] Follow-up with PCP in: 1 week Time spent 40 minutes Ford Keith MD Nov 28, 2016 08:28 Ford Keith MD Nov 28, 2016 08:28
== END 2016-11-22 13:01 | disposition home health service (06) | DRG 190 ==
LOC: SED 17:40 → PCC 20:17
PROVIDERS: ADMIT Hospitalist; ATTEND Hospitalist
DX: J44.1 Chronic obstructive pulmonary disease with (acute) exacerbation (principal); I50.33 Acute on chronic diastolic (congestive) heart failure; F11.20 Opioid dependence, uncomplicated; I24.8 Other forms of acute ischemic heart disease; E11.42 Type 2 diabetes mellitus with diabetic polyneuropathy; M10.9 Gout, unspecified; F32.9 Major depressive disorder, single episode, unspecified; E66.9 Obesity, unspecified; Z68.39 Body mass index [BMI] 39.0-39.9, adult; E78.5 Hyperlipidemia, unspecified; Z79.4 Long term (current) use of insulin; I11.0 Hypertensive heart disease with heart failure; G89.4 Chronic pain syndrome